=== PATIENT | female | born 1940 | race Caucasian/White ===

== ENCOUNTER → 2017-01-15 | Outpatient (CLI) | payer MEDICARE, OTHER ==
--- NOTE | 2017-01-15 17:24 | WOMENS IMAGING REPORT ---
EXAM DESCRIPTION: BILAT SCREENING MAMMO W/CAD COMPLETED DATE/TIME: 01/15/2017 3:12 pm REASON FOR STUDY: Z12.31, ROUTINE SCREENING MAMMO Z12.31 ENCNTR SCREEN MAMMOGRAM FOR MALIGNANT NEOP LASM OF ANGELA COMPARISON: 01/16/2016 and 01/10/2015. TECHNIQUE: Standard craniocaudal and mediolateral oblique views of each breast recorded using digita l acquisition. LIMITATIONS: None. FINDINGS: Findings present which are benign by mammographic criteria. No suspicious masses, calcifi cations or architectural distortion. Pertinent benign findings: Stable calcifications. Read with the assistance of CAD. .[facility] - R2 Cenova Version 1.3 .[facility] - R2 Cenova Version 1.3 .[facility] Imaging - R2 Cenova Version 2.4 .[facility] - R2 Cenova Version 2.4 .[facility] - R2 Senior Industrial Engineer Version 9.2 Benign mammographic findings may include one or more of the following: Smooth masses, popcorn/rim/co arse calcifications, asymmetries, post-procedure changes, and lesions with long-standing stability. IMPRESSION: BENIGN MAMMOGRAPHIC FINDINGS. BIRADS 2 BREAST DENSITY: b. There are scattered areas of fibroglandular density. BIRAD: 2 BENIGN FINDING(S) RECOMMENDATION: ROUTINE SCREENING COMMENT: The patient has been notified of the results by letter per MQSA requirements. Additional no tification policies are in place for contacting patient with suspicious or incomplete findings. Quality ID #[id number]: The [employer] recommends an annual screening mammogram for women aged 40 years or over. This facility utilizes a reminder system to ensure that all patients receive reminder letters, and/or direct phone calls for appointments. This includes reminders for routine scr eening mammograms, diagnostic mammograms, or other Breast Imaging Interventions when appropriate. Th is patient will be placed in the appropriate reminder system. The [employer] (ACR) has developed recommendations for screening MRI of the breast s in certain patient populations, to be used in conjunction with mammography. Breast MRI surveillanc e may be appropriate for women with more than 20% lifetime risk of developing breast cancer as deter mined by genetic testing, significant family history of the disease, or history of mantle radiation f or Hodgkins Disease. ACR Practice Guidelines 2008. TECHNICAL DOCUMENTATION: FINDING NUMBER: (1) ASSESSMENT: (1) JOB ID: [id number] [employer]- All Rights Reserved
== END ==
LOC: WI 13:33
PROVIDERS: ATTEND Internal Medicine
DX: Z12.31 Encounter for screening mammogram for malignant neoplasm of breast (principal)
CPT/HCPCS: 77067; G0202

== ENCOUNTER → 2017-02-21 | Outpatient (CLI) | payer MEDICARE, OTHER ==
--- NOTE | 2017-02-21 10:50 | RADIOLOGY REPORT (SQ) ---
EXAM DESCRIPTION: CHEST PA/LAT COMPLETED DATE/TIME: 02/21/2017 10:37 am REASON FOR STUDY: DYSPNEA (R06.00) COMPARISON: 01/10/2016 EXAM PARAMETERS: NUMBER OF VIEWS: two views TECHNIQUE: Digital Frontal and Lateral radiographic views of the chest acquired. RADIATION DOSE: NA LIMITATIONS: none FINDINGS: LUNGS AND PLEURA: No opacities, masses or pneumothorax. No pleural effusion. MEDIASTINUM AND HILAR STRUCTURES: No masses or contour abnormalities. HEART AND VASCULAR STRUCTURES: Heart normal size. No evidence for failure. BONES: No acute findings. HARDWARE: None in the chest. OTHER: No other significant finding. IMPRESSION: NO SIGNIFICANT RADIOGRAPHIC FINDING IN THE CHEST. TECHNICAL DOCUMENTATION: JOB ID: [id number] [employer]- All Rights Reserved
== END ==
LOC: RAD 10:19
PROVIDERS: ATTEND Internal Medicine Cardiovascular Disease
DX: R06.00 Dyspnea, unspecified (principal)
CPT/HCPCS: 71020

== ENCOUNTER 2017-06-07 14:36 | Emergency (ER) | payer MEDICARE, OTHER ==
--- NOTE | 2017-06-07 14:55 | ER Document Report ---
ED Medical Screen (RME) - General Chief Complaint: Fall Stated Complaint: FALL HEAD PAIN Time Seen by Provider: 06/07/17 14:49 Mode of Arrival: Wheelchair Information source: Patient TRAVEL OUTSIDE OF THE [place] IN LAST 30 DAYS: No - HPI Patient complains to provider of: Trip and fall Notes: 06/07/17 14:54 Patient is a 76-year-old female presenting to the emergency room today complaining of trip and fall with head injury and pain to left knee and ankle, states she was going down some stairs and missed the last day or entirely overstepping it causing her to fall and hit her head, there was no loss of consciousness, she reports pain to the left side of her face with pain in her left eye as well, patient takes Plavix - Related Data Allergies/Adverse Reactions: aspirin [Aspirin] Allergy (Severe, Verified 06/07/17 14:45) Vomiting Penicillins Allergy (Severe, Verified 06/07/17 14:45) Edema Past Medical History - Social History Chew tobacco use (# tins/day): No Frequency of alcohol use: None Drug Abuse: Bath salts - Past Medical History Cardiac Medical History: Reports: Hx Hypertension Denies: Hx Atrial Fibrillation, Hx Congestive Heart Failure, Hx Coronary Artery Disease, Hx Heart Attack, Hx Hypercholesterolemia, Hx Peripheral Vascular Disease, Hx Heart Murmur Endocrine Medical History: Reports: Hx Hypothyroidism - DISEASED THYROID REMOVED 1965 . Denies: Hx Graves' Disease Renal/ Medical History: Denies: Hx Ovarian Cysts, Hx Peritoneal Dialysis, Hx Pelvic Inflammatory Disease Malignancy Medical History: Denies: Hx Breast Cancer, Hx Cervical Cancer, Hx Leukemia, Hx Ovarian Cancer GI Medical History: Reports: Hx Gastroesophageal Reflux Disease. Denies: Hx Crohn's Disease, Hx Hiatal Hernia, Hx Irritable Bowel, Hx Liver Failure, Hx Pancreatitis, Hx Ulcer Musculoskeltal Medical History: Reports Hx Arthritis - osteo, Denies Hx Fibromyalgia, Denies Hx Muscular Dystrophy Traumatic Medical History: Denies: Hx Fractures Infectious Medical History: Denies: Hx HIV Past Surgical History: Reports: Hx Hysterectomy. Denies: Hx Appendectomy, Hx Bowel Surgery, Hx Section, Hx Cholecystectomy, Hx Colostomy, Hx Coronary Artery Bypass Graft, Hx Gastric Bypass Surgery, Hx Herniorrhaphy, Hx Mastectomy, Hx Pacemaker, Hx Tonsillectomy, Hx Tubal Ligation - Immunizations Hx Diphtheria, Pertussis, Tetanus Vaccination: Yes Physical Exam - Vital signs Vitals: Temp Pulse Resp BP Pulse Ox 98.8 F 123 H 18 154/104 H 96 06/07/17 14:45 06/07/17 14:45 06/07/17 14:45 06/07/17 14:45 06/07/17 14:45 Course - Vital Signs Vital signs: Temp Pulse Resp BP Pulse Ox 98.8 F 123 H 18 154/104 H 96 06/07/17 14:45 06/07/17 14:45 06/07/17 14:45 06/07/17 14:45 06/07/17 14:45
--- NOTE | 2017-06-07 15:15 | RADIOLOGY REPORT (SQ) ---
EXAM DESCRIPTION: CT HEAD WITHOUT COMPLETED DATE/TIME: 06/07/2017 3:02 pm REASON FOR STUDY: injury COMPARISON: CT brain 12/11/2012, 09/22/2015, 09/27/2015 TECHNIQUE: Axial images acquired through the brain without intravenous contrast. Images reviewed wi th bone, brain and subdural windows. Images stored on PACS. All CT scanners at this facility use dose modulation, iterative reconstruction, and/or weight based d osing when appropriate to reduce radiation dose to as low as reasonably achievable (ALARA). [facility]: Dose Right [facility]: CareDose [facility]: Dose Right [facility]: Teradose 4D [facility]: [employer] RADIATION DOSE: Up-to-date CT equipment and radiation dose reduction techniques were employed. CTDIv ol: 64.6 mGy. DLP: 1034 mGy-cm. mGy. LIMITATIONS: None. FINDINGS: VENTRICLES: Normal size and contour. CEREBRUM: No masses. No hemorrhage. No midline shift. No evidence for acute infarction. Normal gra y/white matter differentiation. No areas of low density in the white matter. CEREBELLUM: No masses. No hemorrhage. No alteration of density. No evidence for acute infarction. EXTRAAXIAL SPACES: No fluid collections. No masses. ORBITS AND GLOBE: No intra- or extraconal masses. Normal contour of globe without masses. CALVARIUM: No fracture. PARANASAL SINUSES: Fluid right sphenoid sinus SOFT TISSUES: No mass or hematoma. OTHER: No other significant finding. IMPRESSION: NORMAL BRAIN CT WITHOUT CONTRAST. EVIDENCE OF ACUTE STROKE: NO. COMMENT: Quality ID # [id number]: Final reports with documentation of one or more dose reduction techniques (e.g., Automated exposure control, adjustment of the mA and/or kV according to patient size, use of iterative reconstruction technique) TECHNICAL DOCUMENTATION: JOB ID: [id number] [employer]- All Rights Reserved
[2017-06-07] MEDS ORDERED: ACETAMINOPHEN 325 MG TABLET PO ONE (15:41)
--- NOTE | 2017-06-07 15:55 | ER Document Report ---
ED Fall - General Chief Complaint: Fall Stated Complaint: FALL HEAD PAIN Time Seen by Provider: 06/07/17 14:49 Mode of Arrival: Wheelchair Information source: Patient Notes: Patient is a very sweet 74-year-old female on Plavix who presents today after a fall around 10:30 AM. Patient states she was walking down the steps and fell off the last step forward onto her left side. She states she hit her head. She denies loss of consciousness. She states pain to the left side of her head , left knee, left ankle. She states she started to feel nauseous so came to the emergency department. She denies any weakness or numbness. She denies any chest pain or palpitations. She denies any back, upper extremity, or pelvis pain. TRAVEL OUTSIDE OF THE [place] IN LAST 30 DAYS: No - HPI Occurred: Other - See above Where: Home Context: Tripped Associated symptoms: None Location of injury/pain: Other - See above Quality of pain: No pain Severity: Mild Pain Level: 1 Prehospital interventions: Other - See above - Related data Allergies/Adverse Reactions: aspirin [Aspirin] Allergy (Severe, Verified 06/07/17 14:45) Vomiting Penicillins Allergy (Severe, Verified 06/07/17 14:45) Edema Home Medications: Current Home Medications Amitriptyline HCl 25 mg PO DAILY 06/07/17 [History] Butalb/Acetaminophen/Caffeine [Fioricet 50-300-40 mg Capsule] 1 cap PO Q4 PRN [History] Diclofenac Sodium 100 gm TP DAILY 06/07/17 [History] Fluticasone/Salmeterol [Advair 250-50 Diskus 14 Dose/Diskus] 1 inh IH Q12H 06/07 [History] Furosemide 20 mg PO DAILY 06/07/17 [History] Gabapentin 300 mg PO QHS 06/07/17 [History] Olmesartan/Amlodipin/Hcthiazid [Tribenzor 20-5-12.5 mg Tablet] 1 each PO DAILY 06/07/17 [History] Pur9772/Sod Sulf,Bicarb,Cl/KCl [Gavilyte-G Solution] 4,000 ml PO DAILY 06/07/17 [History] Past Medical History - General Information source: Patient - Social History Smoking Status: Never Smoker Cigarette use (# per day): No Chew tobacco use (# tins/day): No Smoking Education Provided: No Frequency of alcohol use: None Drug Abuse: Bath salts Family History: None - Past Medical History Cardiac Medical History: Reports: Hx Hypertension Denies: Hx Atrial Fibrillation, Hx Congestive Heart Failure, Hx Coronary Artery Disease, Hx Heart Attack, Hx Hypercholesterolemia, Hx Peripheral Vascular Disease, Hx Heart Murmur Endocrine Medical History: Reports: Hx Hypothyroidism - DISEASED THYROID REMOVED 1965 . Denies: Hx Graves' Disease Renal/ Medical History: Denies: Hx Ovarian Cysts, Hx Peritoneal Dialysis, Hx Pelvic Inflammatory Disease Malignancy Medical History: Denies: Hx Breast Cancer, Hx Cervical Cancer, Hx Leukemia, Hx Ovarian Cancer GI Medical History: Reports: Hx Gastroesophageal Reflux Disease. Denies: Hx Crohn's Disease, Hx Hiatal Hernia, Hx Irritable Bowel, Hx Liver Failure, Hx Pancreatitis, Hx Ulcer Musculoskeltal Medical History: Reports Hx Arthritis - osteo, Denies Hx Fibromyalgia, Denies Hx Muscular Dystrophy Traumatic Medical History: Denies: Hx Fractures Infectious Medical History: Denies: Hx HIV Past Surgical History: Reports: Hx Hysterectomy. Denies: Hx Appendectomy, Hx Bowel Surgery, Hx Section, Hx Cholecystectomy, Hx Colostomy, Hx Coronary Artery Bypass Graft, Hx Gastric Bypass Surgery, Hx Herniorrhaphy, Hx Mastectomy, Hx Pacemaker, Hx Tonsillectomy, Hx Tubal Ligation - Immunizations Hx Diphtheria, Pertussis, Tetanus Vaccination: Yes Review of Systems - Review of Systems Constitutional: denies: Fever EENT: denies: Eye discharge, Nose discharge Cardiovascular: denies: Chest pain, Palpitations, Syncope Respiratory: denies: Cough, Short of breath Gastrointestinal: denies: Abdominal pain, Diarrhea, Vomiting Genitourinary: denies: Dysuria Musculoskeletal: denies: Leg swelling Skin: Other - no hives. denies: Rash Neurological/Psychological: Other - no slurred speech -: Yes All other systems reviewed and negative Physical Exam - Vital signs Vitals: Temp Pulse Resp BP Pulse Ox 98.8 F 123 H 18 154/104 H 96 06/07/17 14:45 06/07/17 14:45 06/07/17 14:45 06/07/17 14:45 06/07/17 14:45 Notes: Reviewed vital signs and nursing note as charted by RN. CONSTITUTIONAL: Alert and oriented and responds appropriately to questions. Well -appearing; well-nourished HEAD: Normocephalic; atraumatic ENT: Normal nose; no rhinorrhea; moist mucous membranes; midface stable NECK: Supple without meningismus; non-tender CARD: Regular rate and rhythm; no murmurs RESP: Normal chest excursion without splinting or tachypnea; breath sounds clear and equal bilaterally; no tenderness to the anterior posterior chest ABD/GI: Normal bowel sounds; non-distended; soft, non-tender BACK: The back appears normal and is non-tender to palpation EXT: Normal ROM in all joints; tender to palpation of the left lateral malleolus and left knee. There is some swelling to the left lateral malleolus but no swelling to the left knee. Old left knee surgical scar present SKIN: No acute lesions noted NEURO: CN II through XII are intact. Moves all extremities equally; Motor and sensory function intact PSYCH: The patient's mood and manner are appropriate. Grooming and personal hygiene are appropriate. Course - Re-evaluation Re-evalutation: 06/07/17 15:54 Given the history and physical examination, we performed a CT scan of the head and x-ray of the left knee and left ankle. Patient has no focal neurological deficits. Patient denies any pain to any other location. I do not believe any imaging at this time is necessary. 06/07/17 16:14 CT scan of the head shows no acute abnormalities. X-ray of the left knee and left ankle shows no acute fractures. I had a long discussion with the patient about the possibility of a delayed bleed given that she is on Plavix. I have stated I will only be comfortable if the patient is able to go home into the care of another adult. Patient's daughter was going to pick her up. Patient states she also lives with her who is fully oriented. Given that the patient has some swelling to the left lateral malleolus despite a negative x-ray for fractures, I have offered the patient a walking boot and she has accepted. She does not feel that she will be able to handle crutches. I will provide orthopedic follow-up. - Vital Signs Vital signs: Temp Pulse Resp BP Pulse Ox 98.8 F 123 H 18 154/104 H 96 06/07/17 14:45 06/07/17 14:45 06/07/17 14:45 06/07/17 14:45 06/07/17 14:45 Discharge - Discharge Clinical Impression: Contusion of left knee, initial encounter Closed head injury Qualifiers: Encounter type: initial encounter Qualified Code(s): S09.90XA - Unspecified injury of head, initial encounter Left ankle sprain Qualifiers: Encounter type: initial encounter Involved ligament of ankle: other ligament Qualified Code(s): S93.492A - Sprain of other ligament of left ankle, initial encounter Condition: Good Disposition: HOME, SELF-CARE Instructions: Ice Packs ([facility]), Sprained Ankle ([facility]) Additional Instructions: Come back immediately for any increased headache, weakness or numbness, blurry vision, persistent vomiting, or any other acute problems. Please make sure that you ice and rest her ankle and please follow-up with orthopedics as we have provided. Referrals: LEILANI RUDOLPH MD [Primary Care Provider] - Follow up as needed HILTON HIGGINS MD [ACTIVE STAFF] - Follow up as needed
--- NOTE | 2017-06-07 16:25 | RADIOLOGY REPORT (SQ) ---
EXAM DESCRIPTION: ANKLE LEFT COMPLETE COMPLETED DATE/TIME: 06/07/2017 4:02 pm REASON FOR STUDY: fall COMPARISON: None. NUMBER OF VIEWS: Three views. TECHNIQUE: AP, lateral, and oblique radiographic images acquired of the left ankle. LIMITATIONS: None. FINDINGS: MINERALIZATION: Osteopenia BONES: No acute fracture or dislocation. No worrisome bone lesions. JOINTS: No effusions. SOFT TISSUES: Lateral soft tissue swelling. OTHER: No other significant finding. IMPRESSION: Soft tissue swelling overlies the lateral malleolus without underlying fracture. TECHNICAL DOCUMENTATION: JOB ID: [id number] [employer]- All Rights Reserved
--- NOTE | 2017-06-07 16:28 | RADIOLOGY REPORT (SQ) ---
EXAM DESCRIPTION: KNEE LEFT 4 VIEW COMPLETED DATE/TIME: 06/07/2017 4:02 pm REASON FOR STUDY: fall COMPARISON: None. NUMBER OF VIEWS: Four views. TECHNIQUE: AP, lateral, and both oblique radiographic images acquired of the left knee. LIMITATIONS: None. FINDINGS: MINERALIZATION: Osteopenia. BONES: Status post total knee arthroplasty without evidence of hardware fracture, perihardware lucenc y or migration. No evidence of acute osseous injury. JOINT: No effusion. SOFT TISSUES: No soft tissue swelling. No radio-opaque foreign body. OTHER: No other significant finding. IMPRESSION: Status post total knee arthroplasty without evidence of acute injury. TECHNICAL DOCUMENTATION: JOB ID: [id number] [employer]- All Rights Reserved
[2017-06-07 17:29] VITALS: BP 166/82
== END 2017-06-07 17:19 | disposition home or self-care (01) ==
LOC: ER 14:36
DX: S93.402A Sprain of unspecified ligament of left ankle, initial encounter (principal); S09.90XA Unspecified injury of head, initial encounter; W10.9XXA Fall (on) (from) unspecified stairs and steps, initial encounter; Y92.009 Unspecified place in unspecified non-institutional (private) residence as the place of occurrence of the external cause; M25.562 Pain in left knee; R51 Headache; M25.572 Pain in left ankle and joints of left foot; R11.0 Nausea; I10 Essential (primary) hypertension; Z96.652 Presence of left artificial knee joint; Z85.3 Personal history of malignant neoplasm of breast; Z85.41 Personal history of malignant neoplasm of cervix uteri; Z85.43 Personal history of malignant neoplasm of ovary; Z85.6 Personal history of leukemia; Z88.6 Allergy status to analgesic agent; Z88.0 Allergy status to penicillin
CPT/HCPCS: 99284; 73610; 73562; 70450; A9270

== ENCOUNTER → 2017-07-11 | Outpatient (CLI) | payer MEDICARE, OTHER ==
--- NOTE | 2017-07-11 12:22 | WOMENS IMAGING REPORT ---
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 TECHNIQUE: Dual-Energy X-ray Absorptiometry (DEXA) of the AP Spine and Hip. LIMITATIONS: None. FINDINGS: LUMBAR SPINE: The bone mineral density (BMD) measured from L1-L4 in the AP projection correlates with a T-score of -0.6, which is normal as defined by the World Health Organization. HIP: The bone mineral density (BMD) measured in the left femoral neck at the hip correlates with a T-score of -2.5, which is osteoporotic as defined by the World Health Organization. IMPRESSION: 1. LUMBAR SPINE: Normal 2. HIP: Osteoporotic COMMENT: The World Health Organization defines low BMD as follows: T-score: Normal: Greater than -1.0 Osteopenia: Between -1.0 and -2.5 Osteoporosis: Less than -2.5 without fractures Established osteoporosis: Less than -2.5 with fractures In general, you may wish to consider: Diagnosis Treatment Follow-up DEXA Normal BMD Prevention 2-3 years Osteopenia Prevention/Therapy 1-2 years Osteoporosis Therapy Yearly TECHNICAL DOCUMENTATION: JOB ID: [id number]- All Rights Reserved
== END ==
LOC: WI 09:09
PROVIDERS: ATTEND Orthopaedic Surgery
DX: M81.0 Age-related osteoporosis without current pathological fracture (principal)
CPT/HCPCS: 77080

== ENCOUNTER → 2017-07-24 | Outpatient (CLI) | payer MEDICARE, OTHER ==
[2017-07-24 13:37] LABS: ALANINE AMINOTRANSFERASE 24 U/L (9-52); ALBUMIN 4.3 g/dL (3.5-5.0); ALKALINE PHOSPHATASE 85 U/L (38-126); ANION GAP 12 (5-19); ASPARTATE AMINO TRANSFERASE 28 U/L (14-36); BILIRUBIN,DIRECT 0.5 mg/dL (0.0-0.4); BILIRUBIN,TOTAL 0.9 mg/dL (0.2-1.3); BLOOD UREA NITROGEN 12 mg/dL (7-20); CALCIUM 9.5 mg/dL (8.4-10.2); CARBON DIOXIDE 28 mmol/L (22-30); CHLORIDE 93 mmol/L (98-107); CREATININE RESULT 0.95 mg/dL (0.52-1.25); GLUCOSE 88 mg/dL (75-110); POTASSIUM 3.7 mmol/L (3.6-5.0); SODIUM 132.5 mmol/L (137-145); TOTAL PROTEIN 6.8 g/dL (6.3-8.2)
== END ==
LOC: OD 12:01
PROVIDERS: ATTEND Physician Assistant Surgical
DX: M81.0 Age-related osteoporosis without current pathological fracture (principal)
CPT/HCPCS: 36415; 80053; 82308; 83970; 85652

== ENCOUNTER → 2018-01-16 | Outpatient (CLI) | payer MEDICARE, OTHER ==
--- NOTE | 2018-01-21 15:25 | WOMENS IMAGING REPORT ---
EXAM DESCRIPTION: 3D SCREENING MAMMO BILAT COMPLETED DATE/TIME: 01/16/2018 12:33 pm REASON FOR STUDY: ROUTINE SCREENING;Z12.31 Z12.31 ENCNTR SCREEN MAMMOGRAM FOR MALIGNANT NEOPLASM OF ANGELA COMPARISON: [id number] TECHNIQUE: Standard craniocaudal and mediolateral oblique views of each breast recorded using digita l acquisition and breast tomosynthesis. LIMITATIONS: None. FINDINGS: No masses, calcifications or architectural distortion. No areas of suspicion. Read with the assistance of CAD. .[place] - R2 Cenova Version 1.3 .[facility] - R2 Cenova Version 1.3 .[facility] - R2 Cenova Version 2.4 .[facility] - R2 Cenova Version 2.4 .[facility] - R2 [employer] Version 9.2 IMPRESSION: NORMAL MAMMOGRAM. BIRADS 1. BREAST DENSITY: a. The breasts are almost entirely fatty. BIRAD: 1 NEGATIVE RECOMMENDATION: ROUTINE SCREENING COMMENT: The patient has been notified of the results by letter per [place] requirements. Additional no tification policies are in place for contacting patient with suspicious or incomplete findings. Quality ID #[id number]: The [employer] recommends an annual screening mammogram for women aged 40 years or over. This facility utilizes a reminder system to ensure that all patients receive reminder letters, and/or direct phone calls for appointments. This includes reminders for routine scr eening mammograms, diagnostic mammograms, or other Breast Imaging Interventions when appropriate. Th is patient will be placed in the appropriate reminder system. The [employer] (ACR) has developed recommendations for screening MRI of the breast s in certain patient populations, to be used in conjunction with mammography. Breast MRI surveillanc e may be appropriate for women with more than 20% lifetime risk of developing breast cancer as deter mined by genetic testing, significant family history of the disease, or history of mantle radiation f or Hodgkins Disease. ACR Practice Guidelines 2008. DBT Technology DBT is a type of tomographic mammography. With conventional mammography, overlapping breast tissue ma y make lesions difficult to detect, even with good compression. DBT uses an x-ray tube that rotates a round the breast, taking images at different angles. These images are then combined to create thin sl ices of the breast that the radiologist can view as a 3D reconstruction. The [employer] unit can perform full-field digital mammograms (2D imaging); or DBT (3D imaging); or both, in a combination mode that quickly performs both the mammogram and the tomosynthesis scan while the breast is still compressed. PQRS 6045F: Fluoroscopic imaging is not utilized for breast tomosynthesis. TECHNICAL DOCUMENTATION: FINDING NUMBER: (1) ASSESSMENT: (1) JOB ID: [id number] [email or web address]- All Rights Reserved Reading location - IP/workstation name: [email or web address]
== END ==
LOC: WI 08:37
PROVIDERS: ATTEND Internal Medicine
DX: Z12.31 Encounter for screening mammogram for malignant neoplasm of breast (principal)
CPT/HCPCS: 77063; 77067

== ENCOUNTER 2018-01-27 20:15 | Emergency (ER) | payer MEDICARE, OTHER ==
--- NOTE | 2018-01-27 20:48 | ER Document Report ---
ED General - General Information source: Patient TRAVEL OUTSIDE OF THE [place] IN LAST 30 DAYS: No <PARAM CORMIER - Last Filed: 01/27/18 22:01> <SAGE LOPEZ - Last Filed: 01/28/18 02:47> - General Stated Complaint: FALL/HEAD INJURY Time Seen by Provider: 01/27/18 20:21 Notes: 77 y.o female presents to the ED s/p fall and hit to the head while on Plavix. Pt reports that she fell and hit the RT side of her head recently and was already scheduled for a Head CT this coming , 01/29/18, but she fell again tonight and hit the LT side of the head. She denies any pain to her neck, shoulders, back or extremities. Pt reports that she has been stumbling a lot recently and that could have been the cause of her fall but denies this stumbling as being new to her. (PARAM CORMIER) - Related Data Allergies/Adverse Reactions: aspirin [Aspirin] Allergy (Severe, Verified 06/07/17 14:45) Vomiting Penicillins Allergy (Severe, Verified 06/07/17 14:45) Edema Past Medical History - General Information source: Patient - Social History Smoking Status: Unknown if Ever Smoked Family History: None - Past Medical History Cardiac Medical History: Reports: Hx Hypertension Endocrine Medical History: Reports: Hx Hypothyroidism - DISEASED THYROID REMOVED 1965 Renal/ Medical History: Denies: Hx Peritoneal Dialysis GI Medical History: Reports: Hx Gastroesophageal Reflux Disease Musculoskeltal Medical History: Reports Hx Arthritis - osteo Past Surgical History: Reports: Hx Hysterectomy - Immunizations Hx Diphtheria, Pertussis, Tetanus Vaccination: Yes <PARAM CORMIER - Last Filed: 01/27/18 22:01> Review of Systems - Review of Systems Constitutional: See HPI, Other - fall EENT: No symptoms reported Cardiovascular: No symptoms reported Respiratory: No symptoms reported Gastrointestinal: No symptoms reported Genitourinary: No symptoms reported Female Genitourinary: No symptoms reported Musculoskeletal: See HPI. denies: Back pain, Neck pain Skin: No symptoms reported Hematologic/Lymphatic: No symptoms reported Neurological/Psychological: See HPI, Other - hit to head while on blood thinners -: Yes All other systems reviewed and negative <PARAM CORMIER - Last Filed: 01/27/18 22:01> Physical Exam <PARAM CORMIER - Last Filed: 01/27/18 22:01> <SAGE LOPEZ - Last Filed: 01/28/18 02:47> - Vital signs Vitals: Temp Pulse Resp BP Pulse Ox 99.3 F 107 H 20 177/77 H 97 01/27/18 21:10 01/27/18 21:10 01/27/18 21:10 01/27/18 21:10 01/27/18 21:10 - Notes Notes: Physical Exam: General: Alert, appears well. HEENT: Normocephalic. Ecchymosis to her LT forehead and tender to palpation to RT parietal area. PERRL. Extraocular movements intact. Neck: Supple. Non-tender. Respiratory: No respiratory distress. Clear and equal breath sounds bilaterally. Cardiovascular: Regular rate and rhythm. Abdominal: Normal Inspection. Non-tender. No distension. Normal Bowel Sounds. Back: Non-tender. No deformity or step off. Extremities: Moves all four extremities. Upper extremities: Ecchymosis and abrasions in different stages of healing to her bilateral upper extremities. Normal ROM. Lower extremities: Normal inspection. No edema. Normal ROM. Neurological: Normal cognition. AAOx3. Normal speech. Psychological: Normal affect. Normal Mood. Skin: Warm. Dry. Abrasions of various stages of healing to her bilateral upper extremities. (PARAM CORMIER) Course <PARAM CORMIER - Last Filed: 01/27/18 22:01> - Diagnostic Test Radiology reviewed: Reports reviewed <SAGE LOPEZ - Last Filed: 01/28/18 02:47> - Re-evaluation Re-evalutation: Patient is a 77-year-old female who had a mechanical fall hitting the right side of her head this evening. Patient has a left side of her head earlier in the week. She is on Plavix. Patient has already seen her primary doctor this week and is scheduled to follow-up later in the week. She does not need blood work or urine for her. She is asking if she is ready to go home now. It is recommended that with her frequent falls she is assistive devices. Patient states that she does not like to use them but will work on it. She is to hold her Plavix tonight. Return if any worsening or concerning symptoms. Neurovascularly intact. Ambulates well. Stable for discharge. (SAGE LOPEZ) - Vital Signs Vital signs: Temp Pulse Resp BP Pulse Ox 99.3 F 95 18 150/82 H 96 01/27/18 21:56 01/27/18 21:56 01/27/18 21:56 01/27/18 21:56 01/27/18 21:56 Discharge <PARAM CORMIER - Last Filed: 01/27/18 22:01> <SAGE LOPEZ - Last Filed: 01/28/18 02:47> - Discharge Clinical Impression: Closed head injury Qualifiers: Encounter type: initial encounter Qualified Code(s): S09.90XA - Unspecified injury of head, initial encounter Condition: Stable Disposition: HOME, SELF-CARE Additional Instructions: Please hold your Plavix tonight. Please use your assistive devices to prevent falls. Referrals: JAYDON BASS PA-C [NO LOCAL MD] - Follow up tomorrow Scribe Attestation: 01/28/18 02:47 I personally performed the services described in the documentation, reviewed and edited the documentation which was dictated to the scribe in my presence, and it accurately records my words and actions. (SAGE LOPEZ) Scribe Documentation - Scribe Written by Chepe:: Chepe Cardona 01/27/[id number] acting as scribe for :: Bob <PARAM CORMIER - Last Filed: 01/27/18 22:01>
--- NOTE | 2018-01-27 20:53 | RADIOLOGY REPORT (SQ) ---
EXAM DESCRIPTION: CT HEAD WITHOUT COMPLETED DATE/TIME: 01/27/2018 8:45 pm REASON FOR STUDY: on plavix fall COMPARISON: 06/07/2017 TECHNIQUE: Axial images acquired through the brain without intravenous contrast. Images reviewed wi th bone, brain and subdural windows. Images stored on PACS. All CT scanners at this facility use dose modulation, iterative reconstruction, and/or weight based d osing when appropriate to reduce radiation dose to as low as reasonably achievable (ALARA). [facility]: Dose Right [facility]: CareDose [facility]: Dose Right [facility]: Teradose 4D [facility]: Smart [employer] RADIATION DOSE: CT Rad equipment meets quality standard of care and radiation dose reduction techniq ues were employed. CTDIvol: 53.2 mGy. DLP: 1017 mGy-cm. mGy. LIMITATIONS: None. FINDINGS: VENTRICLES: Normal size and contour. CEREBRUM: No masses. No hemorrhage. No midline shift. No evidence for acute infarction. Normal gra y/white matter differentiation. No areas of low density in the white matter. CEREBELLUM: No masses. No hemorrhage. No alteration of density. No evidence for acute infarction. EXTRAAXIAL SPACES: No fluid collections. No masses. ORBITS AND GLOBE: No intra- or extraconal masses. Normal contour of globe without masses. CALVARIUM: No fracture. PARANASAL SINUSES: Mild mucosal thickening without air-fluid levels. SOFT TISSUES: Right posterior parietal scalp hematoma. OTHER: No other significant finding. IMPRESSION: SCALP HEMATOMA WITHOUT FRACTURE OR ACUTE INTRACRANIAL PROCESS. EVIDENCE OF ACUTE STROKE: NO. COMMENT: Quality ID # [id number]: Final reports with documentation of one or more dose reduction techniques (e.g., Automated exposure control, adjustment of the mA and/or kV according to patient size, use of iterative reconstruction technique) TECHNICAL DOCUMENTATION: JOB ID: [id number] [employer]- All Rights Reserved Reading location - IP/workstation name: [email or web address]
--- NOTE | 2018-01-27 20:54 | RADIOLOGY REPORT (SQ) ---
EXAM DESCRIPTION: CT CERVICAL SPINE WITHOUT COMPLETED DATE/TIME: 01/27/2018 8:45 pm REASON FOR STUDY: on plavix fall COMPARISON: 09/27/2015 TECHNIQUE: Axial images acquired through the cervical spine without intravenous contrast. Images re viewed with lung, soft tissue and bone windows. Reconstructed coronal and sagittal MPR images review ed. Images stored on PACS. All CT scanners at this facility use dose modulation, iterative reconstruction, and/or weight based d osing when appropriate to reduce radiation dose to as low as reasonably achievable (ALARA). [facility]: Dose Right [facility]: CareDose [facility]: Dose Right [facility]: Teradose 4D [facility]: Smart [employer] RADIATION DOSE: CT Rad equipment meets quality standard of care and radiation dose reduction techniq ues were employed. CTDIvol: 27.5 mGy. DLP: 572 mGy-cm. mGy. LIMITATIONS: None. FINDINGS: ALIGNMENT: Anatomic. MINERALIZATION: Normal. VERTEBRAL BODIES: No fractures or dislocation. DISCS: Multilevel disc space narrowing with osteophytes. FACETS, LATERAL MASSES, POSTERIOR ELEMENTS: Facet arthropathy. No fractures. No dislocation. No ac keith findings. HARDWARE: None in the spine. VISUALIZED RIBS: No fractures. LUNG APICES AND SOFT TISSUES: No significant or acute findings. OTHER: No other significant finding. IMPRESSION: CHRONIC DEGENERATIVE CHANGES. NO ACUTE FINDINGS. TECHNICAL DOCUMENTATION: JOB ID: [id number] Quality ID # [id number]: Final reports with documentation of one or more dose reduction techniques (e.g., Au tomated exposure control, adjustment of the mA and/or kV according to patient size, use of iterative reconstruction technique) 2010 [employer]- All Rights Reserved Reading location - IP/workstation name: [email or web address]
[2018-01-27] MEDS ORDERED: ONDANSETRON 4 MG TAB.RAPDIS PO ONE (21:51)
[2018-01-27] MEDS ORDERED: ACETAMINOPHEN 325 MG TABLET PO ONE (21:51)
[2018-01-27] MEDS ORDERED: LIDOCAINE 5% (700 MG) TRANSDERMAL ADH..PATCH TP ONE (21:51)
[2018-01-27 21:58] VITALS: BP 150/82
[2018-01-27] MEDS ORDERED: ONDANSETRON ODT 4 MG TAB (6 TAB/ER DISP) PO PRN (22:09)
== END 2018-01-27 22:20 | disposition home or self-care (01) ==
LOC: ER 20:15
DX: S00.83XA Contusion of other part of head, initial encounter (principal); S40.022A Contusion of left upper arm, initial encounter; S40.021A Contusion of right upper arm, initial encounter; W19.XXXA Unspecified fall, initial encounter; R26.89 Other abnormalities of gait and mobility; Z79.02 Long term (current) use of antithrombotics/antiplatelets; Z88.6 Allergy status to analgesic agent; Z88.0 Allergy status to penicillin; I10 Essential (primary) hypertension
CPT/HCPCS: 99284; 70450; 72125; A9270 ×2; S0119

== ENCOUNTER 2019-01-14 06:49 | Emergency (ER) | payer MEDICARE, OTHER ==
--- NOTE | 2019-01-14 08:43 | EKG REPORT ---
SEVERITY:- NORMAL ECG - SINUS RHYTHM : Confirmed by: Bertha Rausch 14-Jan-2019 08:41:05
--- NOTE | 2019-01-14 09:01 | RADIOLOGY REPORT (SQ) ---
EXAM DESCRIPTION: CT HEAD WITHOUT COMPLETED DATE/TIME: 01/14/2019 8:43 am REASON FOR STUDY: edward COMPARISON: None. TECHNIQUE: Axial images acquired through the brain without intravenous contrast. Images reviewed wi th bone, brain and subdural windows. Additional sagittal and coronal reconstructions were generated. Images stored on PACS. All CT scanners at this facility use dose modulation, iterative reconstruction, and/or weight based d osing when appropriate to reduce radiation dose to as low as reasonably achievable (ALARA). [facility]: Dose Right [facility]: CareDose [facility]: Dose Right [facility]: Teradose 4D [facility]: [place] RADIATION DOSE: CT Rad equipment meets quality standard of care and radiation dose reduction techniq ues were employed. CTDIvol: 53.2 mGy. DLP: 964 mGy-cm.mGy. LIMITATIONS: None. FINDINGS: VENTRICLES: Prominent. CEREBRUM: No masses. No hemorrhage. No midline shift. Areas of low density in the white matter mos t likely due to chronic micro-vascular ischemic change. No evidence for acute infarction. CEREBELLUM: No masses. No hemorrhage. No alteration of density. No evidence for acute infarction. EXTRAAXIAL SPACES: Age-related involutional change. No fluid collections. No masses. ORBITS AND GLOBE: No intra- or extraconal masses. Normal contour of globe without masses. CALVARIUM: No fracture. PARANASAL SINUSES: Opacified right sphenoid sinus. SOFT TISSUES: No mass or hematoma. OTHER: No other significant finding. IMPRESSION: CHRONIC CHANGES OF ATROPHY AND MICROVASCULAR ISCHEMIA. NO ACUTE PROCESS. EVIDENCE OF ACUTE STROKE: NO. TECHNICAL DOCUMENTATION: JOB ID: [id number] Quality ID # [id number]: Final reports with documentation of one or more dose reduction techniques (e.g., Au tomated exposure control, adjustment of the mA and/or kV according to patient size, use of iterative reconstruction technique) 2010 [employer]- All Rights Reserved Reading location - IP/workstation name: [email or web address]
[2019-01-14] MEDS ORDERED: DIPHENHYDRAMINE HCL 25 MG CAPSULE PO ONE (09:12)
--- NOTE | 2019-01-14 09:19 | ER Document Report ---
ED General - General Chief Complaint: Headache Stated Complaint: HEADACHE Time Seen by Provider: 01/14/19 07:54 Primary Care Provider: LEILANI RUDOLPH MD [Primary Care Provider] - Follow up in 1 week Mode of Arrival: Ambulatory Information source: Patient Notes: Patient presents emergency department with complaints of headache that comes and goes for the past 3 days. Reports patient reports headache is gone right now. She feels like it is coming back. She reports she is been taking 3 Tylenol every 3-4 hours for the pain. Reports the headache will make her feel little bit nauseated and dizzy. She reports she was recently treated with laser eye surgery on Friday then last they took 6 teeth out. She was also diagnosed with an ear infection on Friday by her primary care provider. She was treated with eardrops for the ear infection. She had headaches at that time to but they thought was due to the earaches. She also called her primary care provider back regarding headaches and he prescribed her a Z-Kraig yesterday. She reports she took 2 of the Zithromax and felt better yesterday. Her daughter also brought her some medication for sinus infection , nasal sprays. She denies trauma. Denies vomiting diarrhea. She reports the headaches come and go feels like pressure all over her head. TRAVEL OUTSIDE OF THE [place] IN LAST 30 DAYS: No - HPI Onset: Other Onset/Duration: Waxing and waning Quality of pain: Pressure Severity: Severe Pain Level: 5 - Reports headache is a 5 when it comes. She took last Tylenol at approximately 6:00. Associated symptoms: Headache, Nausea Exacerbated by: Denies Relieved by: Denies Similar symptoms previously: Yes Recently seen / treated by doctor: Yes - Related Data Allergies/Adverse Reactions: aspirin [Aspirin] Allergy (Severe, Verified 01/14/19 07:32) Vomiting Penicillins Allergy (Severe, Verified 01/14/19 07:32) Edema Past Medical History - General Information source: Patient - Social History Smoking Status: Unknown if Ever Smoked Cigarette use (# per day): No Frequency of alcohol use: None Drug Abuse: None Family History: None Patient has suicidal ideation: No Patient has homicidal ideation: No - Past Medical History Cardiac Medical History: Reports: Hx Hypertension Denies: Hx Atrial Fibrillation, Hx Congestive Heart Failure, Hx Coronary Artery Disease, Hx Heart Attack, Hx Hypercholesterolemia, Hx Peripheral Vascular Disease, Hx Heart Murmur Endocrine Medical History: Reports: Hx Hypothyroidism - DISEASED THYROID REMOVED 1965 . Denies: Hx Graves' Disease Renal/ Medical History: Denies: Hx Ovarian Cysts, Hx Peritoneal Dialysis, Hx Pelvic Inflammatory Disease Malignancy Medical History: Denies: Hx Breast Cancer, Hx Cervical Cancer, Hx Leukemia, Hx Ovarian Cancer GI Medical History: Reports: Hx Gastroesophageal Reflux Disease. Denies: Hx Crohn's Disease, Hx Hiatal Hernia, Hx Irritable Bowel, Hx Liver Failure, Hx Pancreatitis, Hx Ulcer Musculoskeletal Medical History: Reports Hx Arthritis - osteo, Denies Hx Fibromy algia, Denies Hx Muscular Dystrophy, Denies Hx Systemic Lupus Erythematosus Traumatic Medical History: Denies: Hx Fractures Infectious Medical History: Denies: Hx HIV Past Surgical History: Reports: Hx Hysterectomy, Hx Orthopedic Surgery - bilat knee replacement, r shoulder recplacement. Denies: Hx Appendectomy, Hx Bowel S urgery, Hx Section, Hx Cholecystectomy, Hx Colostomy, Hx Coronary Artery Bypass Graft, Hx Gastric Bypass Surgery, Hx Herniorrhaphy, Hx Mastectomy, Hx Pacemaker, Hx Tonsillectomy, Hx Tubal Ligation - Immunizations Hx Diphtheria, Pertussis, Tetanus Vaccination: Yes Review of Systems - Review of Systems Notes: Review HPI for review of systems., All other systems negative Physical Exam - Vital signs Vitals: Temp Pulse Resp BP Pulse Ox 98.3 F 102 H 18 125/58 L 100 01/14/19 07:09 01/14/19 07:09 01/14/19 07:09 01/14/19 07:09 01/14/19 07:09 - Notes Notes: PHYSICAL EXAMINATION: GENERAL: Well-appearing and in no acute distress HEAD: Atraumatic, normocephalic. EYES: Pupils equal round and reactive to light, extraocular movements intact, sclera anicteric, conjunctiva are normal. ENT: nares patent, oropharynx clear without exudates. Moist mucous membranes. right EAC eyrthema NECK: Normal range of motion, supple without lymphadenopathy LUNGS: CTAB and equal. No wheezes rales or rhonchi. HEART: Regular rate and rhythm without murmurs ABDOMEN: Soft, no tenderness. No guarding, no rebound EXTREMITIES: Normal range of motion, no pitting edema. No cyanosis. NEUROLOGICAL: Cranial nerves grossly intact. Normal sensory/motor exams. PSYCH: Normal mood, normal affect. 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 Patient reports the headache is coming back so we will treat her with Benadryl and she recently took Tylenol. Patient reports ibuprofen makes her nauseated sick to her stomach.. 01/14/19 09:59 Patient reports her headache is now worse. Will attempt Zofran and Reglan. 01/14/19 10:43 Patient reports her headache is better. She has an appoint with Dr. Rausch tomorrow. She will follow-up with Dr. Rudolph next week. She was instructed to return for any concerns she verbalized understanding. 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 Patient is neurologically intact. Her CT was negative. She feels better. The patient has been instructed to return if the symptoms worsen or change in anyway. Dictation of this chart was performed using voice recognition software; therefore, there may be some unintended grammatical errors. - Vital Signs Vital signs: Temp Pulse Resp BP Pulse Ox 98.4 F 70 16 123/61 95 01/14/19 09:59 01/14/19 09:59 01/14/19 09:59 01/14/19 09:59 01/14/19 09:59 - Diagnostic Test Radiology reviewed: Image reviewed, Reports reviewed - EXAM DESCRIPTION: CT HEAD WITHOUT COMPLETED DATE/TIME: 01/14/2019 8:43 am REASON FOR STUDY: edward COMPARISON: None. TECHNIQUE: Axial images acquired through the brain without intravenous contrast. Images reviewed with bone, brain and subdural windows. Additional sagittal and coronal reconstructions were generated. Images stored on PACS. All CT scanners at this facility use dose modulation, iterative reconstruction, and/or weight based dosing when appropriate to reduce radiation dose to as low as reasonably achievable (ALARA). [facility]: Dose Right [facility]: CareDose [facility]: Dose Right [facility]: Teradose 4D [facility]: [employer] RADIATION DOSE: CT Rad equipment meets quality standard of care and radiation dose reduction techniques were employed. CTDIvol: 53.2 mGy. DLP: 964 mGy-cm.mGy. LIMITATIONS: None. FINDINGS: VENTRICLES: Prominent. CEREBRUM: No masses. No hemorrhage. No midline shift. Areas of low density in the white matter most likely due to chronic micro-vascular ischemic change. No evidence for acute infarction. CEREBELLUM: No masses. No hemorrhage. No alteration of density. No evidence for acute infarction. EXTRAAXIAL SPACES: Age-related involutional change. No fluid collections. No masses. ORBITS AND GLOBE: No intra- or extraconal masses. Normal contour of globe without masses. CALVARIUM: No fracture. PARANASAL SINUSES: Opacified right sphenoid sinus. SOFT TISSUES: No mass or hematoma. OTHER: No other significant finding. IMPRESSION: CHRONIC CHANGES OF ATROPHY AND MICROVASCULAR ISCHEMIA. NO ACUTE PROCESS. EVIDENCE OF ACUTE STROKE: NO. - EKG Interpretation by Sd EKG shows normal: Sinus rhythm Rate: Normal Rhythm: NSR Additional EKG results interpreted by de: 01/14/19 09:[address] elevation or T wave inversion Discharge - Discharge Clinical Impression: Headache Qualifiers: Headache type: unspecified Headache chronicity pattern: unspecified pattern Intractability: not intractable Qualified Code(s): R51 - Headache Condition: Stable Disposition: HOME, SELF-CARE Instructions: Acetaminophen, Use of Diphenhydramine, Headache ([facility]) Additional Instructions: *You have been evaluated for headache *Take tylenol as indicated *Follow up with Dr Holt within one week for recheck *Return to ED for worsening condition, changes, needs Referrals: LEILANI RUDOLPH MD [Primary Care Provider] - Follow up in 1 week
[2019-01-14] MEDS ORDERED: METOCLOPRAMIDE HCL 10 MG TABLET PO ONE (09:59)
[2019-01-14] MEDS ORDERED: ONDANSETRON 4 MG TAB.RAPDIS PO ONE (09:59)
[2019-01-14 10:14] VITALS: BP 123/61
== END 2019-01-14 10:53 | disposition home or self-care (01) ==
LOC: ER 06:49
DX: I10 Essential (primary) hypertension (principal); R51 Headache; R11.0 Nausea; R42 Dizziness and giddiness
CPT/HCPCS: 93005; 99284; 70450; 93010; A9270 ×3; S0119

== ENCOUNTER → 2019-01-25 | Outpatient (CLI) | payer MEDICARE, OTHER ==
--- NOTE | 2019-01-25 11:04 | WOMENS IMAGING REPORT ---
EXAM DESCRIPTION: 3D SCREENING MAMMO BILAT COMPLETED DATE/TIME: 01/25/2019 8:57 am REASON FOR STUDY: Z12.31 ROUTINE 3D BILATERAL SCREENING Z12.31 ENCNTR SCREEN MAMMOGRAM FOR MALIGNAN T NEOPLASM OF ANGELA COMPARISON: [id number] EXAM PARAMETERS: Views: Standard craniocaudal and mediolateral oblique views of each breast recorded using digital acquisition and breast tomosynthesis. Read with the assistance of CAD. .[facility] - [employer] Version 9.2 LIMITATIONS: None. FINDINGS: No suspicious masses, suspicious calcifications or architectural distortion. No areas of c oncern. IMPRESSION: Assessment: Negative MAMMOGRAM. BIRADS 1. BREAST DENSITY: b. There are scattered areas of fibroglandular density. BIRAD: 1 NEGATIVE RECOMMENDATION: ROUTINE SCREENING COMMENT: The patient has been notified of the results by letter per MQSA requirements. Additional no tification policies are in place for contacting patient with suspicious or incomplete findings. Quality ID #[id number]: The [employer] recommends an annual screening mammogram for women aged 40 years or over. This facility utilizes a reminder system to ensure that all patients receive reminder letters, and/or direct phone calls for appointments. This includes reminders for routine scr eening mammograms, diagnostic mammograms, or other Breast Imaging Interventions when appropriate. Th is patient will be placed in the appropriate reminder system. TECHNICAL DOCUMENTATION: FINDING NUMBER: (1) ASSESSMENT: (1) JOB ID: [id number] [employer]- All Rights Reserved Reading location - IP/workstation name: [email or web address]
== END ==
LOC: WI 08:31
PROVIDERS: ATTEND Internal Medicine
DX: Z12.31 Encounter for screening mammogram for malignant neoplasm of breast (principal)
CPT/HCPCS: 77063; 77067

== ENCOUNTER → 2019-02-03 | Outpatient (CLI) | payer MEDICARE, OTHER ==
[2019-02-03 09:42] LABS: APPEARANCE,URINE SLIGHTLY-CLOUDY; BILIRUBIN,URINE NEGATIVE (NEGATIVE); COLOR,URINE YELLOW; GLUCOSE, URINE NEGATIVE (NEGATIVE); KETONES,URINE NEGATIVE (NEGATIVE); LEUKOCYTE ESTERASE,URINE LARGE (NEGATIVE); NITRITE,URINE NEGATIVE (NEGATIVE); PROTEIN,URINE NEGATIVE (NEGATIVE); URINE SPECIFIC GRAVITY 1.011; UROBILINOGEN,URINE NEGATIVE mg/dL (<2.0)
[2019-02-03 09:49] LABS: ABSOLUTE BASOPHILS # (AUTO) 0.1 10^3/uL (0.0-0.2); ABSOLUTE EOSINOPHILS # (AUTO) 0.2 10^3/uL (0.0-0.6); ABSOLUTE LYMPHOCYTES (AUTO) 1.7 10^3/uL (0.5-4.7); ABSOLUTE MONOCYTES (AUTO) 0.4 10^3/uL (0.1-1.4); ABSOLUTE NEUT (AUTO) 2.5 10^3/uL (1.7-8.2); BASOPHILS % (AUTO) 1.3 % (0-2); EOSINOPHILS % (AUTO) 4.7 % (0-6); HEMOGLOBIN 11.9 g/dL (12.0-15.5); LYMPHOCYTES % (AUTO) 33.8 % (13-45); MEAN CORPUSCULAR HEMOGLOBIN 32.3 pg (27.0-33.4); MEAN CORPUSCULAR VOLUME 95 fl (80-97); MONOCYTES % (AUTO) 8.4 % (3-13); PLATELET COUNT 323 10^3/uL (150-450); RED BLOOD COUNT 3.68 10^6/uL (3.72-5.28); RED CELL DISTRIBUTION WIDTH 14.7 % (11.5-14.0); SEGMENTED NEUTROPHILS % (AUTO) 51.8 % (42-78); TOTAL CELLS COUNTED % (AUTO) 100 %; WHITE BLOOD COUNT 4.9 10^3/uL (4.0-10.5)
[2019-02-03 09:56] LABS: ANION GAP 10 (5-19); BLOOD UREA NITROGEN 15 mg/dL (7-20); CALCIUM 9.8 mg/dL (8.4-10.2); CARBON DIOXIDE 26 mmol/L (22-30); CHLORIDE 97 mmol/L (98-107); GLUCOSE 103 mg/dL (75-110); POTASSIUM 4.4 mmol/L (3.6-5.0); SODIUM 133.3 mmol/L (137-145)
--- NOTE | 2019-02-03 11:30 | RADIOLOGY REPORT (SQ) ---
EXAM DESCRIPTION: CHEST PA/LATERAL COMPLETED DATE/TIME: 02/03/2019 9:24 am REASON FOR STUDY: PRE-OP COMPARISON: 1,017 TECHNIQUE: Frontal and lateral radiographic views of the chest acquired. NUMBER OF VIEWS: Two view. LIMITATIONS: None. FINDINGS: LUNGS AND PLEURA: Mild eventration right hemidiaphragm with basilar scar and evidence of p revious granulomatous disease. Chronic change. Stable appearance. No developing opacities. MEDIASTINUM AND HILAR STRUCTURES: No masses or contour abnormalities. HEART AND VASCULAR STRUCTURES: Heart normal size. No evidence for failure. BONES: No acute findings. HARDWARE: None in the chest. OTHER: No other significant finding. IMPRESSION: Stable chest without acute cardiopulmonary disease. TECHNICAL DOCUMENTATION: JOB ID: [id number] [employer]- All Rights Reserved Reading location - IP/workstation name: [email or web address]
--- NOTE | 2019-02-03 15:50 | EKG REPORT ---
SEVERITY:- NORMAL ECG - SINUS RHYTHM : Confirmed by: Connor Cochran MD 03-Feb-2019 15:49:34
== END ==
LOC: OD 08:32
PROVIDERS: ATTEND Orthopaedic Surgery
DX: Z01.810 Encounter for preprocedural cardiovascular examination (principal); Z01.811 Encounter for preprocedural respiratory examination; Z01.812 Encounter for preprocedural laboratory examination
CPT/HCPCS: 36415; 71046; 80048; 81001; 85025; 93005; 93010

== ENCOUNTER 2019-03-01 05:24 | Inpatient (IN) | payer MEDICARE, OTHER ==
[~2019-03-01 05:24] MED LIST: BUPIVACAINE INJ/PF LIPOSOME/PF 266 MG/20 ML SDV INJ PRN; CEFAZOLIN INJ 1 GM VIAL IV PRN; CEFAZOLIN INJ 1 GM VIAL ONE; IBUPROFEN 800 MG in NORMAL SALINE 250 ML IV PRN; LACTATED RINGERS 1000 ML IV PRN; LIDOCAINE 0.5% INJ-PF (5 MG/ML) 50 ML SDV SUBCUT PRN; OXYCODONE HCL SR 10 MG TABLET PO ONE; OXYCODONE HCL SR 10 MG TABLET PO PRN; PANTOPRAZOLE SODIUM 20 MG TABLET.DR PO ONE; PANTOPRAZOLE SODIUM 20 MG TABLET.DR PO PRN; VANCOMYCIN HCL 1,000 MG in DEXTROSE 5%-WATER 250 ML IV PRN
[2019-03-01] MEDS ORDERED: FENTANYL CITRATE INJ/PF 250 MCG/5 ML AMPULE ONE (06:25)
[2019-03-01] MEDS ORDERED: FENTANYL CITRATE INJ/PF 100 MCG/2 ML AMPUL ONE (06:26)
[2019-03-01] MEDS ORDERED: PROPOFOL INJ 200 MG/20 ML VIAL IV ONE (06:26)
[2019-03-01] MEDS ORDERED: ONDANSETRON HCL INJ/PF 4 MG/2 ML SDV ONE (06:26)
[2019-03-01] MEDS ORDERED: EPHEDRINE SULFATE INJ 50 MG/1 ML AMPULE ONE (06:26)
[2019-03-01] MEDS ORDERED: MIDAZOLAM 2 MG/2 ML INJ ONE (06:26)
[2019-03-01] MEDS ORDERED: DEXAMETHASONE SOD PHOSPHATE INJ 4 MG/1 ML VIAL ONE (06:26)
[2019-03-01] MEDS ORDERED: TRANEXAMIC ACID INJ/PF 1,000 MG/10 ML SDV IV ONE (06:27)
[2019-03-01] MEDS ORDERED: LIDOCAINE 0.5% INJ-PF (5 MG/ML) 50 ML SDV ONE (06:28)
[2019-03-01 06:43] LABS: INTERNATIONAL RATION (INR) 0.93; PROTHROMBIN TIME 12.5 SEC (11.4-15.4)
[2019-03-01] MEDS ORDERED: BUPIVACAINE HCL 0.25% /EPINEPHRINE INJ/PF 30 ML SDV ONE (07:10)
[2019-03-01] MEDS ORDERED: FENTANYL CITRATE INJ/PF 100 MCG/2 ML AMPUL IV PRN ×3 (08:05)
[2019-03-01] MEDS ORDERED: MEPERIDINE HCL/PF INJ 25 MG/1 ML DISP.SYRIN IV PRN (08:05)
[2019-03-01] MEDS ORDERED: MORPHINE SULFATE 10 MG/ML INJ IV PRN (08:05)
[2019-03-01] MEDS ORDERED: ONDANSETRON HCL INJ/PF 4 MG/2 ML SDV IV PRN (08:05)
[2019-03-01] MEDS ORDERED: DIPHENHYDRAMINE HCL 50 MG/ML VIAL IV PRN (08:05)
[2019-03-01] MEDS ORDERED: PROMETHAZINE HCL INJ 25 MG/1 ML VIAL IV PRN ×2 (08:05)
[2019-03-01] MEDS ORDERED: VANCOMYCIN HCL INJ 1000 MG VIAL ONE (09:01)
--- NOTE | 2019-03-01 09:31 | Discharge Summary ---
Discharge Summary (SDC) - Discharge Final Diagnosis: Left rotator cuff arthropathy Date of Surgery: 03/01/19 Discharge Date: 03/02/19 Condition: Good Prescriptions: Oxycodone HCl/Acetaminophen [Percocet 5-325 mg Tablet] 1 tab PO Q6 #40 tab Referrals: LEILANI RUDOLPH MD [Primary Care Provider] -
--- NOTE | 2019-03-01 09:39 | Operative Report ---
Operative Report DATE OF SURGERY: 03/01/19 PREOPERATIVE DIAGNOSIS: Left rotator cuff arthropathy OPERATION: Left reverse shoulder arthroplasty SURGEON: HILTON HIGGINS ANESTHESIA: GA TISSUE REMOVED OR ALTERED: Bone to pathology COMPLICATIONS: Left humerus fracture ESTIMATED BLOOD LOSS: 100 PROCEDURE: Cooper reunion reverse shoulder 12 x 200 cemented humeral stem With the patient in a beachchair position the left upper extremity and forequarter prepped and draped in a sterile fashion. A standard deltopectoral approach to the shoulder joint is taken. A lesser tuberosity osteotomy was performed and tagged for repair of the subscapularis at the end of the case. Access was gained to the humerus. This is removed cylindrical reamers until a 13 mm reamer is seated. A trial reduction of the implant is performed. The glenoid is exposed. The capsule was released circumferentially and the labrum debrided. The the baseplate is then secured with 5 screws and the glenosphere impacted. A trial reduction was then performed and the fit and stability are excellent. In the process of dislocating the humeral head there is an acute snap audible and an underlying humeral fracture. The existing stem was removed. A 200 mm stem was placed down the canal and the comminuted fracture is re-approximated using interrupted cables x 3. The 200 stem is then slightly removed by about 3 inches and cement with polymethylmethacrylate containing vancomycin placed down the proximal aspect of the humerus. The stem was then replaced. The final humeral head is impacted into the trunnion. The shoulder is reduced. Is irrigated with 3 L normal saline containing Betadine The lesser tuberosity osteotomy and the rotator cuff were repaired using interrupted FiberWire. The remainder of the wound closure was interrupted Vicryl followed by preston. A sterile dressing and a shoulder abduction pillow were placed. The patient's return to the PACU in satisfactory condition. Initially transferred to the
[2019-03-01] MEDS ORDERED: RINGERS SOLUTION,LACTATED 1,000 ML IV PRN (10:04)
[2019-03-01] MEDS: FENTANYL CITRATE INJ/PF 100 MCG/2 ML AMPUL ONE ×2 (10:15→10:20)
[2019-03-01] MEDS ORDERED: ACETAMINOPHEN 1,000 MG/100 ML RTUPB IV ONE (10:29)
[2019-03-01] MEDS: MORPHINE SULFATE 10 MG/ML INJ ONE ×4 (10:35→10:50)
--- NOTE | 2019-03-01 11:32 | RADIOLOGY REPORT (SQ) ---
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 FLUOROSCOPY TIME: 0.4 minutes 15 digital fluoroscopic images saved to PACS. TECHNIQUE: Intra-operative images acquired during surgical procedure to evaluate progress. NUMBER OF IMAGES: 15 digital fluoroscopic images LIMITATIONS: None. FINDINGS: Intra procedural imaging and fluoro. Please see the operative report IMPRESSION: IMAGE(S) OBTAINED DURING PROCEDURE. COMMENT: Quality ID 145: Final reports for procedures using fluoroscopy that document radiation exp osure indices, or exposure time and number of fluorographic images (if radiation exposure indices are not available) Please consult full operative report of the attending physician for description of the procedure. TECHNICAL DOCUMENTATION: JOB ID: [id number] [facility]- All Rights Reserved Reading location - IP/workstation name: [email or web address]
--- NOTE | 2019-03-01 11:32 | RADIOLOGY REPORT (SQ) ---
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 FLUOROSCOPY TIME: 0.4 minutes 15 digital fluoroscopic images saved to PACS. TECHNIQUE: Intra-operative images acquired during surgical procedure to evaluate progress. NUMBER OF IMAGES: 15 digital fluoroscopic images LIMITATIONS: None. FINDINGS: Intra procedural imaging and fluoro. Please see the operative report IMPRESSION: IMAGE(S) OBTAINED DURING PROCEDURE. COMMENT: Quality ID 145: Final reports for procedures using fluoroscopy that document radiation exp osure indices, or exposure time and number of fluorographic images (if radiation exposure indices are not available) Please consult full operative report of the attending physician for description of the procedure. TECHNICAL DOCUMENTATION: JOB ID: [id number] [employer]- All Rights Reserved Reading location - IP/workstation name: [email or web address]
[2019-03-01] MEDS ORDERED: ACETAMINOPHEN 325 MG TABLET PO SCH (12:00)
[2019-03-01] MEDS ORDERED: ONDANSETRON 4 MG TAB.RAPDIS SL SCH (12:00)
[2019-03-01] MEDS ORDERED: OXYCODONE-ACETAMINOPHEN 5-325 MG TABLET PO SCH (12:00)
[2019-03-01] MEDS ORDERED: PHENYLEPHRINE HCL INJ/PF 10 MG/1 ML SDV ONE (14:46)
[2019-03-01] MEDS ORDERED: GLYCOPYRROLATE 1 MG/5 ML VIAL ONE (14:46)
[2019-03-01] MEDS ORDERED: ONDANSETRON 4 MG TAB.RAPDIS SL PRN (15:30)
[2019-03-01] MEDS: OXYCODONE-ACETAMINOPHEN 5-325 MG TABLET PO PRN ×2 (16:31→22:31)
[2019-03-01] MEDS: CEFAZOLIN 2 GM/D5W RTU 2 GM/50 ML RTUPB IV SCH ×2 (16:32→22:31)
[2019-03-02] MEDS: ACETAMINOPHEN 325 MG TABLET PO PRN ×2 (00:40→10:17)
[2019-03-02 01:08] VITALS: BP 172/70
--- NOTE | 2019-03-02 07:20 | PDOC DISCHARGE SUMMARY ---
General - Admit/Disc Date/PCP Admission Date/Primary Care Provider: 03/01/19 05:24 LEILANI RUDOLPH MD Discharge Date: 03/02/19 - Discharge Diagnosis (1) Left rotator cuff tear arthropathy Is this a current diagnosis for this admission?: Yes - Additional Information Resuscitation Status: Full Code Prescriptions: Oxycodone HCl/Acetaminophen [Percocet 5-325 mg Tablet] 1 tab PO Q6 #40 tab Home Medications: Clopidogrel Bisulfate [Clopidogrel] 75 mg PO DAILY 09/27/15 Levothyroxine Sodium [Synthroid] 175 mcg PO Q6AM 09/27/15 Amitriptyline HCl 25 mg PO QHS 06/07/17 Furosemide 20 mg PO DAILY 06/07/17 Gabapentin 300 mg PO QHS 06/07/17 Meloxicam [Mobic] 7.5 mg PO DAILY 02/11/19 Olmesartan/Amlodipin/Hcthiazid [Pqyaezk-Pgaigw-Mwbn 20-5-12.5] 1 tab PO DAILY 02/11/19 Pantoprazole Sodium 40 mg PO DAILY 02/11/19 Calcium Carbonate/Vitamin D3 [Calcium 600 + Vit D Tablet] 1 tab PO DAILY 03/01/19 Cefazolin Sodium [Ancef Inj 1 gm Vial] 2 gm IV Q8 #2 vial 03/01/19 Fluticasone Propionate [Flonase Nasal Lucan 50 Mcg/Lucan 16 gm] 1 spray NASL Q12 03/01/19 Lidocaine [Lidoderm 5% (700 mg) Transdermal Patch] 1 patch TP DAILY 03/01/19 Oxycodone HCl/Acetaminophen [Percocet 5-325 mg Tablet] 1 tab PO Q6 #40 tab Quinine Sulfate [Qualaquin 324 mg Capsule] 160 mg PO HSP PRN 03/01/19 History of Present Illness History of Present Illness: CLEMENCIA AGRAWAL is a 78 year old female Patient is a 78-year-old white female with progressive left shoulder pain and functional disability which is unresponsive to conservative therapy. The patient is admitted for elective left shoulder arthroplasty. Hospital Course Hospital Course: Patient is admitted through the operating where she undergoes a left reverse shoulder arthroplasty complicated by an intraoperative humerus fracture. This is dealt with an open reduction internal fixation around a longstem. Tolerates the procedure without any further complications and returned to floor in satisfactory condition. Pain control is an issue. Distal neurovascular examination including radial nerve motor function is intact postoperatively. Physical Exam Vital Signs: Temp Pulse Resp BP Pulse Ox 37.2 C 88 18 172/70 H 90 L 03/02/19 00:40 03/02/19 00:40 03/02/19 00:40 03/02/19 00:40 03/02/19 00:40 Intake & Output 03/01/19 03/02/19 03/03/19 06:59 06:59 06:59 Intake Total 0 6709 Output Total 2830 Balance 0 3879 Weight 88.1 kg Physical Exam: Middle-aged white female lying in bed in minor distress. Next to her in the recliner is her daughter. They both alert, oriented, and appropriate. General appearance: PRESENT: mild distress, well-developed, well-nourished Head exam: PRESENT: normocephalic Respiratory exam: PRESENT: unlabored Cardiovascular exam: PRESENT: RRR Pulses: PRESENT: normal radial pulses Vascular exam: PRESENT: normal capillary refill GI/Abdominal exam: PRESENT: soft Rectal exam: PRESENT: deferred Extremities exam: PRESENT: other - Left shoulder dressing is clean dry and intact. Shoulder abduction pillow is in place. Left radial nerve motor function is 5/5 to manual testing. There is brisk capillary refill. Neurological exam: PRESENT: alert, awake, oriented to person, oriented to place, oriented to time, oriented to situation. ABSENT: motor sensory deficit Psychiatric exam: PRESENT: appropriate affect, normal mood. ABSENT: homicidal ideation, suicidal ideation Skin exam: PRESENT: dry, intact, warm. ABSENT: cyanosis, rash Results Laboratory Results: 03/01/19 06:15 03/01/19 06:15 Blood Type A POSITIVE Antibody Screen NEGATIVE Impressions: Fluoroscopy 03/01/19 00:00 IMPRESSION: IMAGE(S) OBTAINED DURING PROCEDURE. Shoulder X-Ray 03/01/19 00:00 IMPRESSION: IMAGE(S) OBTAINED DURING PROCEDURE. Status: Imported from PACS Qualifiers - * PATIENT BEING DISCHARGED WITH ANY OF THE FOLLOWING DIAGNOSIS: No VTE patient discharged on overlapping Therapy?: No Reason(s) for not prescribing Overlap Therapy:: Not indicated Acute Heart Failure - Is this a Heart Failure Patient?: No Plan Discharge Plan: Patient be discharged home with home health services and DME. Follow-up with Dr. Mary and [facility] for surgery in 2 weeks for staple removal.
[2019-03-02] MEDS ORDERED: HYDROCODONE/ACETAMINOPHEN 5-325 MG TABLET PO PRN (07:33)
[2019-03-02 07:34] LABS: HEMATOCRIT 31.8 % (36.0-47.0); HEMOGLOBIN 10.8 g/dL (12.0-15.5); MEAN CORPUSCULAR HEMOGLOBIN 32.6 pg (27.0-33.4); MEAN CORPUSCULAR HGB CONC 34.1 g/dL (32.0-36.0); MEAN CORPUSCULAR VOLUME 96 fl (80-97); PLATELET COUNT 307 10^3/uL (150-450); RED BLOOD COUNT 3.33 10^6/uL (3.72-5.28); RED CELL DISTRIBUTION WIDTH 14.4 % (11.5-14.0); WHITE BLOOD COUNT 11.8 10^3/uL (4.0-10.5)
[2019-03-02 08:01] LABS: ANION GAP 8 (5-19); BLOOD UREA NITROGEN 14 mg/dL (7-20); CALCIUM 9.6 mg/dL (8.4-10.2); CARBON DIOXIDE 26 mmol/L (22-30); CHLORIDE 97 mmol/L (98-107); GLUCOSE 110 mg/dL (75-110); POTASSIUM 4.8 mmol/L (3.6-5.0); SODIUM 130.7 mmol/L (137-145)
== END 2019-03-02 12:35 | disposition home health service (06) | DRG 483 ==
LOC: INOR 05:24 → 4S 11:37
PROVIDERS: ADMIT Orthopaedic Surgery; ATTEND Orthopaedic Surgery
PROC: 0LQ20ZZ Repair Left Shoulder Tendon, Open Approach (ICD-10-PCS; 2019-03-01)
PROC: 0RRK00Z Replacement of Left Shoulder Joint with Reverse Ball and Socket Synthetic Substitute, Open Approach (ICD-10-PCS; principal; 2019-03-01 07:30)
DX: M19.012 Primary osteoarthritis, left shoulder (principal); M96.622 Fracture of humerus following insertion of orthopedic implant, joint prosthesis, or bone plate, left arm; E03.9 Hypothyroidism, unspecified; M75.102 Unspecified rotator cuff tear or rupture of left shoulder, not specified as traumatic; Y83.8 Other surgical procedures as the cause of abnormal reaction of the patient, or of later complication, without mention of misadventure at the time of the procedure; Y92.234 Operating room of hospital as the place of occurrence of the external cause; Z79.82 Long term (current) use of aspirin; E21.3 Hyperparathyroidism, unspecified; I10 Essential (primary) hypertension; M10.9 Gout, unspecified; K21.9 Gastro-esophageal reflux disease without esophagitis; Z82.61 Family history of arthritis; Z96.653 Presence of artificial knee joint, bilateral; Z96.612 Presence of left artificial shoulder joint; E66.3 Overweight; Z68.36 Body mass index [BMI] 36.0-36.9, adult
CPT/HCPCS: 36415; 80048; 84132; 85027; 85610; 85730; 86850; 86900; 86901; 88304; 88305; 88311; J0131; J0690; J1100; J1741; J2250; J2270; J2370; J2405; J2704; J3010; J3370; J3490; J7050; J7060; J7120

== ENCOUNTER → 2019-07-13 | Outpatient (CLI) | payer MEDICARE, OTHER ==
[2019-07-13 10:52] LABS: ABSOLUTE BASOPHILS # (AUTO) 0.1 10^3/uL (0.0-0.2); ABSOLUTE EOSINOPHILS # (AUTO) 0.4 10^3/uL (0.0-0.6); ABSOLUTE LYMPHOCYTES (AUTO) 1.4 10^3/uL (0.5-4.7); ABSOLUTE MONOCYTES (AUTO) 0.4 10^3/uL (0.1-1.4); ABSOLUTE NEUT (AUTO) 3.1 10^3/uL (1.7-8.2); EOSINOPHILS % (AUTO) 6.8 % (0-6); HEMATOCRIT 34.5 % (36.0-47.0); HEMOGLOBIN 11.6 g/dL (12.0-15.5); LYMPHOCYTES % (AUTO) 27.2 % (13-45); MEAN CORPUSCULAR HEMOGLOBIN 32.4 pg (27.0-33.4); MEAN CORPUSCULAR HGB CONC 33.6 g/dL (32.0-36.0); MEAN CORPUSCULAR VOLUME 97 fl (80-97); MONOCYTES % (AUTO) 7.1 % (3-13); PLATELET COUNT 312 10^3/uL (150-450); RED BLOOD COUNT 3.58 10^6/uL (3.72-5.28); RED CELL DISTRIBUTION WIDTH 14.9 % (11.5-14.0); SEGMENTED NEUTROPHILS % (AUTO) 57.9 % (42-78); TOTAL CELLS COUNTED % (AUTO) 100 %; WHITE BLOOD COUNT 5.3 10^3/uL (4.0-10.5)
[2019-07-13 11:12] LABS: ANION GAP 9 (5-19); BLOOD UREA NITROGEN 27 mg/dL (7-20); CALCIUM 9.6 mg/dL (8.4-10.2); CARBON DIOXIDE 28 mmol/L (22-30); CHLORIDE 98 mmol/L (98-107); GLUCOSE 91 mg/dL (75-110)
--- NOTE | 2019-07-13 12:17 | EKG REPORT ---
SEVERITY:- DEFECTIVE ECG - SINUS RHYTHM NONSPECIFIC INTRAVENTRICULAR CONDUCTION DELAY LATE PRECORDIAL TRANSITION. : Confirmed by: Connor Cochran MD 13-Jul-2019 12:17:17
== END ==
LOC: OD 10:01
PROVIDERS: ATTEND Orthopaedic Surgery
DX: Z01.89 Encounter for other specified special examinations (principal); Z01.818 Encounter for other preprocedural examination; Z01.810 Encounter for preprocedural cardiovascular examination
CPT/HCPCS: 36415; 80048; 85025; 87070; 93005; 93010

== ENCOUNTER 2019-10-11 07:33 | Day surgery (SDC) | payer MEDICARE, OTHER ==
[2019-10-04 09:25] LABS: APPEARANCE,URINE SLIGHTLY-CLOUDY; BILIRUBIN,URINE NEGATIVE (NEGATIVE); COLOR,URINE YELLOW; GLUCOSE, URINE NEGATIVE (NEGATIVE); KETONES,URINE NEGATIVE (NEGATIVE); LEUKOCYTE ESTERASE,URINE LARGE (NEGATIVE); NITRITE,URINE NEGATIVE (NEGATIVE); PROTEIN,URINE NEGATIVE (NEGATIVE); URINE SPECIFIC GRAVITY 1.012; UROBILINOGEN,URINE NEGATIVE mg/dL (<2.0)
[2019-10-04 09:33] LABS: HEMATOCRIT 40.5 % (36.0-47.0); HEMOGLOBIN 13.8 g/dL (12.0-15.5); MEAN CORPUSCULAR HEMOGLOBIN 32.2 pg (27.0-33.4); MEAN CORPUSCULAR VOLUME 95 fl (80-97); PLATELET COUNT 376 10^3/uL (150-450); RED BLOOD COUNT 4.28 10^6/uL (3.72-5.28); RED CELL DISTRIBUTION WIDTH 13.7 % (11.5-14.0); WHITE BLOOD COUNT 7.5 10^3/uL (4.0-10.5)
[2019-10-04 10:42] LABS: ANION GAP 12 (5-19); BLOOD UREA NITROGEN 17 mg/dL (7-20); CALCIUM 10.1 mg/dL (8.4-10.2); CARBON DIOXIDE 29 mmol/L (22-30); CHLORIDE 92 mmol/L (98-107); GLUCOSE 93 mg/dL (75-110); POTASSIUM 4.2 mmol/L (3.6-5.0)
--- NOTE | 2019-10-04 11:50 | RADIOLOGY REPORT (SQ) ---
EXAM DESCRIPTION: CHEST PA/LATERAL COMPLETED DATE/TIME: 10/04/2019 9:47 am REASON FOR STUDY: PRE-OP COMPARISON: PA and lateral views of the chest from 02/03/2019. EXAM PARAMETERS: NUMBER OF VIEWS: two views TECHNIQUE: PA and lateral views of the chest were obtained RADIATION DOSE: NA LIMITATIONS: none FINDINGS: LUNGS AND PLEURA: No consolidation, pleural effusion or pneumothorax. MEDIASTINUM AND HILAR STRUCTURES: No mediastinal or hilar contour abnormality. HEART AND VASCULAR STRUCTURES: Stable enlarged cardiac silhouette. BONES: No acute findings. HARDWARE: Bilateral shoulder arthroplasties. OTHER: Eventration of the right hemidiaphragm. IMPRESSION: Cardiomegaly without a superimposed acute cardiopulmonary process. TECHNICAL DOCUMENTATION: JOB ID: [id number] 2010 [employer]- All Rights Reserved Reading location - IP/workstation name: [email or web address]
--- NOTE | 2019-10-04 13:37 | EKG REPORT ---
SEVERITY:- BORDERLINE ECG - SINUS RHYTHM PROBABLE LEFT ATRIAL ABNORMALITY BORDERLINE IVCD WITH LAD : Confirmed by: Connor Cochran MD 04-Oct-2019 13:36:24
[~2019-10-11 07:33] MED LIST changes: -BUPIVACAINE INJ/PF LIPOSOME/PF 266 MG/20 ML SDV INJ PRN; -CEFAZOLIN INJ 1 GM VIAL IV PRN; -CEFAZOLIN INJ 1 GM VIAL ONE; +CLINDAMYCIN 600 MG/D5W RTU 600 MG/50 ML RTUPB IV PRN; +FENTANYL CITRATE INJ/PF 100 MCG/2 ML AMPUL ONE; -IBUPROFEN 800 MG in NORMAL SALINE 250 ML IV PRN; +MIDAZOLAM 2 MG/2 ML INJ ONE; -OXYCODONE HCL SR 10 MG TABLET PO ONE; -OXYCODONE HCL SR 10 MG TABLET PO PRN; -PANTOPRAZOLE SODIUM 20 MG TABLET.DR PO ONE; -PANTOPRAZOLE SODIUM 20 MG TABLET.DR PO PRN; +PROPOFOL INJ 200 MG/20 ML VIAL IV ONE; -VANCOMYCIN HCL 1,000 MG in DEXTROSE 5%-WATER 250 ML IV PRN
[2019-10-11] MEDS ORDERED: ONDANSETRON HCL INJ/PF 4 MG/2 ML SDV ONE (08:14)
[2019-10-11] MEDS ORDERED: PHENYLEPHRINE HCL INJ/PF 10 MG/1 ML SDV ONE (08:14)
[2019-10-11] MEDS ORDERED: SUCCINYLCHOLINE CHLORIDE INJ 200 MG/10 ML VIAL ONE (08:14)
[2019-10-11] MEDS ORDERED: ROCURONIUM BROMIDE INJ 50 MG/5 ML VIAL IV ONE (08:14)
[2019-10-11] MEDS ORDERED: DEXAMETHASONE SOD PHOSPHATE INJ 4 MG/1 ML VIAL ONE (08:14)
[2019-10-11] MEDS ORDERED: GLYCOPYRROLATE 1 MG/5 ML VIAL ONE (08:14)
[2019-10-11] MEDS ORDERED: CLINDAMYCIN 600 MG/D5W RTU 600 MG/50 ML RTUPB IV ONE (08:19)
[2019-10-11 09:01] LABS: INTERNATIONAL RATION (INR) 0.95; PROTHROMBIN TIME 12.7 SEC (11.4-15.4)
[2019-10-11] MEDS ORDERED: BUPIVACAINE HCL 0.25 % INJ/PF (2.5 MG/1 ML) 30 ML VIAL ONE (09:23)
[2019-10-11] MEDS ORDERED: LIDOCAINE 1%/EPINEPHRINE INJ 20 ML VIAL ONE (09:24)
[2019-10-11] MEDS ORDERED: FENTANYL CITRATE INJ/PF 100 MCG/2 ML AMPUL IV PRN ×4 (09:45→13:16)
[2019-10-11] MEDS ORDERED: MORPHINE SULFATE 10 MG/ML INJ IV PRN (09:45)
[2019-10-11] MEDS ORDERED: MEPERIDINE HCL/PF INJ 25 MG/1 ML DISP.SYRIN IV PRN (09:45)
[2019-10-11] MEDS ORDERED: DIPHENHYDRAMINE HCL 50 MG/ML VIAL IV PRN (09:45)
[2019-10-11] MEDS ORDERED: ONDANSETRON HCL INJ/PF 4 MG/2 ML SDV IV PRN (09:45)
[2019-10-11] MEDS ORDERED: TRANEXAMIC ACID INJ/PF 1,000 MG/10 ML SDV ONE (12:27)
--- NOTE | 2019-10-11 12:40 | Operative Report ---
Operative Report DATE OF SURGERY: 10/11/19 PREOPERATIVE DIAGNOSIS: Left humeral nonunion OPERATION: Takedown of nonunion and open reduction internal fixation of humerus fracture with application of VTOS bone graft substitute SURGEON: HILTON HIGGINS ANESTHESIA: GA TISSUE REMOVED OR ALTERED: Nonunion tissue to pathology ESTIMATED BLOOD LOSS: 150 PROCEDURE: With the patient in a beachchair position on the operating table the left upper extremity and forequarter prepped and draped in a sterile fashion. Longitudinal incision was made over the anterolateral aspect of the midportion humerus and the distal portion of the humerus. Sharp dissection was used carried incision down to the underlying humerus. Nerve stimulators used to ensure that the radial nerve structures are avoided during this dissection. A talc cable which is encountered is removed. The nonunion site is exposed. It is taken down using a rongeur. Tissue was sent for pathologic evaluation. Soft tissue was then elevated off the humerus on either side of the nonunion circumferentially. A [place] 3.5 mm 9 hole plate is applied and secured to the distal fragment with 4 screws. Is then secured to the proximal fragment using 3 FiberWire cable constructs. Construct is checked using fluoroscopy and felt to be adequate. The wound is then irrigated with pulse lavage and 3 L normal saline containing Betadine. V toss bone substitute is then packed into the gap between the bone surfaces. The wound is then closed in layers interrupted Vicryl followed by preston. A sterile compressive dressing and shoulder immobilizer applied and the patient is returned to the PACU in satisfactory condition.
--- NOTE | 2019-10-11 12:41 | Discharge Summary ---
Discharge Summary (SDC) - Discharge Final Diagnosis: Left humeral nonunion Date of Surgery: 10/11/19 Discharge Date: 10/11/19 Condition: Good Forms: ASU Anesthesia D/C Instruction, Discharge POC-Surgical Service Treatment or Instructions: DR. GISELA PAYAN IS 10/28/[address] SALINAS PAYAN IS 10/27/2019 AT 1050 AM Referrals: HILTON HIGGINS MD [ACTIVE STAFF] - 10/28/19 10:00 am Discharge Diet: Regular Respiratory Treatments at Home: Deep Breathing/Coughing Discharge Activity: Balance Activity w/Rest, No tub bath Home Care Assistance: None Needed Report the Following to Your Physician Immediately: Shortness of Breath, Fever over 101 Degrees, Drainage-Foul Smelling
[2019-10-11] MEDS ORDERED: FENTANYL CITRATE INJ/PF 100 MCG/2 ML AMPUL ONE (13:17)
[2019-10-11] MEDS ORDERED: OXYCODONE HCL IR 5 MG TABLET PO PRN (14:12)
[2019-10-11] MEDS ORDERED: OXYCODONE HCL IR 5 MG TABLET ONE (14:15)
--- NOTE | 2019-10-11 14:46 | RADIOLOGY REPORT (SQ) ---
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 TECHNIQUE: Intra-operative images acquired during surgical procedure to evaluate progress. NUMBER OF IMAGES: 3 digital fluoroscopic images LIMITATIONS: None. FINDINGS: Intra procedural imaging and fluoro during placement of a left distal humerus fixation gautam te and multiple screws. Please see the operative report for further details IMPRESSION: IMAGE(S) OBTAINED DURING PROCEDURE. COMMENT: Quality ID 145: Final reports for procedures using fluoroscopy that document radiation exp osure indices, or exposure time and number of fluorographic images (if radiation exposure indices are not available) Please consult full operative report of the attending physician for description of the procedure. TECHNICAL DOCUMENTATION: JOB ID: [id number] 2010 [employer]- All Rights Reserved Reading location - IP/workstation name: [email or web address]
--- NOTE | 2019-10-11 14:46 | RADIOLOGY REPORT (SQ) ---
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 TECHNIQUE: Intra-operative images acquired during surgical procedure to evaluate progress. NUMBER OF IMAGES: 3 digital fluoroscopic images LIMITATIONS: None. FINDINGS: Intra procedural imaging and fluoro during placement of a left distal humerus fixation gautam te and multiple screws. Please see the operative report for further details IMPRESSION: IMAGE(S) OBTAINED DURING PROCEDURE. COMMENT: Quality ID 145: Final reports for procedures using fluoroscopy that document radiation exp osure indices, or exposure time and number of fluorographic images (if radiation exposure indices are not available) Please consult full operative report of the attending physician for description of the procedure. TECHNICAL DOCUMENTATION: JOB ID: [id number] 2010 [employer]- All Rights Reserved Reading location - IP/workstation name: [email or web address]
[2019-10-11 15:43] VITALS: BP 173/84
== END 2019-10-11 15:54 | disposition home or self-care (01) ==
LOC: OROUT 07:33
PROVIDERS: ATTEND Orthopaedic Surgery
DX: M79.602 Pain in left arm (principal); Z79.899 Other long term (current) drug therapy; Z79.01 Long term (current) use of anticoagulants; Z88.0 Allergy status to penicillin; Z79.82 Long term (current) use of aspirin; I10 Essential (primary) hypertension; E03.9 Hypothyroidism, unspecified; E66.3 Overweight; Z68.36 Body mass index [BMI] 36.0-36.9, adult; E21.3 Hyperparathyroidism, unspecified; S42.302K Unspecified fracture of shaft of humerus, left arm, subsequent encounter for fracture with nonunion; X58.XXXD Exposure to other specified factors, subsequent encounter
CPT/HCPCS: 93005; 36415 ×2; 84132; 85027; 85610; 85730; 80048; 81001; 88305 ×2; 88311; 71046; 73060; 93010; 01630; 24435; J2250; J3490 ×3; J1100; J3010; J2370; J0330; J2405; J2704; A9270; C1713; C1894; C1898

== ENCOUNTER → 2020-08-10 | Outpatient (CLI) | payer MEDICARE, OTHER ==
[2020-08-10 11:22] LABS: ABSOLUTE BASOPHILS # (AUTO) 0.1 10^3/uL (0.0-0.2); ABSOLUTE EOSINOPHILS # (AUTO) 0.3 10^3/uL (0.0-0.6); ABSOLUTE LYMPHOCYTES (AUTO) 1.5 10^3/uL (0.5-4.7); ABSOLUTE MONOCYTES (AUTO) 0.4 10^3/uL (0.1-1.4); ABSOLUTE NEUT (AUTO) 2.9 10^3/uL (1.7-8.2); BASOPHILS % (AUTO) 1.1 % (0-2); EOSINOPHILS % (AUTO) 5.6 % (0-6); HEMATOCRIT 35.8 % (36.0-47.0); HEMOGLOBIN 12.3 g/dL (12.0-15.5); LYMPHOCYTES % (AUTO) 28.5 % (13-45); MEAN CORPUSCULAR HEMOGLOBIN 31.9 pg (27.0-33.4); MEAN CORPUSCULAR HGB CONC 34.4 g/dL (32.0-36.0); MEAN CORPUSCULAR VOLUME 93 fl (80-97); MONOCYTES % (AUTO) 7.7 % (3-13); PLATELET COUNT 317 10^3/uL (150-450); RED BLOOD COUNT 3.86 10^6/uL (3.72-5.28); RED CELL DISTRIBUTION WIDTH 14.4 % (11.5-14.0); SEGMENTED NEUTROPHILS % (AUTO) 57.1 % (42-78); TOTAL CELLS COUNTED % (AUTO) 100 %; WHITE BLOOD COUNT 5.1 10^3/uL (4.0-10.5)
[2020-08-10 12:18] LABS: ERYTHROCYTE SEDIMENTATION RATE 24 mm/hr (0-30)
== END ==
LOC: OD 10:10
PROVIDERS: ATTEND Orthopaedic Surgery
DX: Z01.812 Encounter for preprocedural laboratory examination (principal)
CPT/HCPCS: 36415; 85025; 85652; 86140

== ENCOUNTER 2020-09-01 09:29 | Day surgery (SDC) | payer MEDICARE, OTHER ==
[~2020-09-01 09:29] MED LIST changes: -CLINDAMYCIN 600 MG/D5W RTU 600 MG/50 ML RTUPB IV PRN; +DEXAMETHASONE SOD PHOSPHATE INJ 4 MG/1 ML VIAL ONE; -FENTANYL CITRATE INJ/PF 100 MCG/2 ML AMPUL ONE; +GLYCOPYRROLATE 1 MG/5 ML VIAL ONE; -MIDAZOLAM 2 MG/2 ML INJ ONE; +ONDANSETRON HCL INJ/PF 4 MG/2 ML SDV ONE; +PHENYLEPHRINE HCL INJ/PF 10 MG/1 ML SDV ONE; -PROPOFOL INJ 200 MG/20 ML VIAL IV ONE; +ROCURONIUM BROMIDE INJ 50 MG/5 ML VIAL IV ONE
[2020-09-01] MEDS ORDERED: MIDAZOLAM 2 MG/2 ML INJ ONE (11:52)
[2020-09-01] MEDS ORDERED: FENTANYL CITRATE INJ/PF 100 MCG/2 ML AMPUL ONE (11:52)
[2020-09-01] MEDS ORDERED: PROPOFOL INJ 200 MG/20 ML VIAL IV ONE (11:53)
[2020-09-01] MEDS ORDERED: ROPIVACAINE HCL 0.2% INJ/PF (2 MG/ML) 20 ML SDV ONE (11:53)
[2020-09-01] MEDS ORDERED: LIDOCAINE 1% INJ-PF (10 MG/ML) 30 ML SDV ONE (11:54)
[2020-09-01] MEDS ORDERED: BUPIVACAINE HCL 0.5 % INJ/PF 30 ML SDV ONE (11:54)
[2020-09-01] MEDS ORDERED: ROPIVACAINE HCL 0.5% INJ/PF (5 MG/1 ML) 30 ML SDV ONE (12:05)
[2020-09-01] MEDS ORDERED: CLINDAMYCIN PHOSPHATE INJ 300 MG/2 ML SDV ONE (12:32)
[2020-09-01] MEDS ORDERED: CLINDAMYCIN 900 MG/D5W RTU 900 MG/50 ML RTUPB IV ONE (12:35)
--- NOTE | 2020-09-01 12:36 | Discharge Summary ---
Discharge Summary (SDC) - Discharge Final Diagnosis: Left Humerus Nonunion Date of Surgery: 09/01/20 Discharge Date: 09/01/20 Condition: Good Treatment or Instructions: Schedule Follow Up w/ Dr. Melvin Bustillo @ [facility] for Surgery to be seen in 10-14 days or as scheduled [place]: [place]: [place]: May remove dressing on postop day #3, keep incision covered and dry. Cryocuff to shoulder May begin range of motion hand, wrist and elbow range of motion 4x per day or as tolerated. May remove sling for hygiene purposes otherwise continue it at all times. Stool softener of choice when on pain medication. USE OF JHKA-ZOD-WTLBLXZ IBUPROFEN: Ibuprofen (Advil, Nuprin, Medipren, Motrin IB) is a medication for fever and pain control. In addition, it has anti- inflammatory effects which may be beneficial, especially in the treatment of injuries. It's best to take ibuprofen with food. Persons with ulcer disease or allergy to aspirin should notify their physician of this before taking ibuprofen. Ibuprofen can be given every four to six hours, for a total of four doses daily. Age Pain or fever dose Antiinflammatory dose 6-8 yr 200 mg (1 tab) 200 mg (1 tab) 9-11 yr 200 mg (1 tab) 200-400 mg (1-2 tab) 11-14 yr 200-400 mg (1-2 tab) 400 mg (2 tab) 15-adult 400 mg (2 tab) 600 mg (3 tab) ORAL NARCOTIC MEDICATION: You have been given a prescription for pain control. This medication is a narcotic. It's best taken with food, as nausea can result if taken on an empty stomach. Don't operate machinery or drive within six hours of taking this medication. Do not combine this medicine with alcohol, or with any medication which can cause sedation (such as cold tablets or sleeping pills) unless you get permission from the physician. Narcotics tend to cause constipation. If possible, drink plenty of fluids and eat a diet high in fiber and fruits. Please be aware that prescription narcotics also have the potential for abuse. People become addicted to these medications because of the general sense of wellbeing that they induce. This feeling along with a significant reduction in tension, anxiety, and aggression provides a stimulating seductive quality to these drugs. Once your pain is under control, we encourage you to discard your unused narcotics. Prescriptions: Oxycodone HCl/Acetaminophen [Percocet 7.5-325 mg Tablet] 1 tab PO Q6 #25 tab Discharge Diet: As Tolerated Respiratory Treatments at Home: Deep Breathing/Coughing, Incentive Spirometer Discharge Activity: No Lifting Over 10 Pounds, No Lifting/Push/Pulling Report the Following to Your Physician Immediately: Fever over 101 Degrees, Unusual Bleeding, Redness, Swelling, Warmth, Increased Soreness
[2020-09-01] MEDS ORDERED: DIPHENHYDRAMINE HCL 50 MG/ML VIAL IV PRN (13:12)
[2020-09-01] MEDS ORDERED: MORPHINE SULFATE 10 MG/ML INJ IV PRN ×2 (13:12→16:30)
[2020-09-01] MEDS ORDERED: FENTANYL CITRATE INJ/PF 100 MCG/2 ML AMPUL IV PRN ×3 (13:12)
[2020-09-01] MEDS ORDERED: OXYCODONE-ACETAMINOPHEN 5-325 MG TABLET PO PRN ×3 (13:12→16:30)
[2020-09-01] MEDS ORDERED: PROMETHAZINE HCL INJ 25 MG/1 ML VIAL IV PRN ×2 (13:12)
[2020-09-01] MEDS ORDERED: MEPERIDINE HCL/PF INJ 25 MG/1 ML DISP.SYRIN IV PRN (13:12)
[2020-09-01] MEDS ORDERED: VANCOMYCIN HCL INJ 1000 MG VIAL ONE (15:53)
[2020-09-01] MEDS ORDERED: ONDANSETRON HCL INJ/PF 4 MG/2 ML SDV IV PRN (16:30)
--- NOTE | 2020-09-01 16:50 | Operative Report ---
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 Patient subsequently required additional open reduction to fixation but this also went on to nonunion and failure. Patient was then sent to mt at which point we discussed treatment options given the retained hardware and instability of the fracture decision was made to proceed with operative treatment. Risk and benefits were explained patient verbalized understanding consented for surgery procedure. Procedure In Detail: Patient was seen and evaluated in the preoperative holding area. The LEFT upper extremity was initialized and marked. Patient received 900 mg of clindamycin IV for bacterial prophylaxis. Patient was taken back to the operative room where transferred to the operative table and placed under general anesthesia. Once they were adequately anesthetized patient placed in the beachchair position. Cervical spine was placed in neutral position all bony prominences were padded including nonoperative upper extremity and bilateral lower extremity. A surgical team debriefing was performed ensuring all instrumentation was available, the surgical procedure was discussed with possible concerns reviewed. The upper extremity was prepped with ChloraPrep draped in a sterile fashion. A timeout was done identifying correct patient, procedure and extremity everyone in attendance agree with this and verbalized no concerns. Prior skin incision was utilized and extended proximally and distally. Blunt dissection was performed. There is significant scarring of the deltopectoral interval which was utilized. The distal extension via the anterior lateral approach between the triceps and brachialis was utilized which was also scarred. The radial nerve was identified distally within the wound and intact. A nerve stimulator was applied which confirmed intact radial nerve preoperatively. Once the nerve was identified and protected the prior fracture site was exposed. There was a small seroma within the pseudoarthrosis. Aerobic/anaerobic cultures were obtained. The biceps muscle and medial aspect of the brachialis were retracted in a medial direction to protect the brachial artery and median nerve. Any peripheral bleeding was controlled with bipolar cautery. Once the humerus proximally and distally was exposed the prior hardware was successfully removed. There was evidence of hypertrophic bone and the bone edges were then aggressively debrided. A large reamer was then placed within the distal fragment in order to get normal-appearing bony. The proximal distal fracture edges were debrided with a bur and irrigation until normal-appearing bone was identified. The distal aspect of the prosthesis was telescoped within the distal humerus successfully shortening the bone in order to provide interfragmentary compression and optimal environment for osseous healing. A Cooper 3.5 millimeter compression plate was then applied to the lateral aspect of the humerus and secured with cortical fixation. An additional screw was then placed through the compression hole distally providing interfragmentary compression. An additional compression screw was placed providing further compression. A total of 3 points of fixation were obtained proximally and distally. I then placed a large 5.0 mm narrow plate anteriorly which was secured with a locking s crew proximally and a provisional cortical screws distally. The plate was further secured with additional locking screws proximally and distally. C-arm fluoroscopy was obtained confirming acceptable reduction of the fracture. The plate was then further secured proximally with a Kinamed cable x2 with an additional cable distally tensioned at high tension. Upon passing the cable blunt dissection was performed around the humerus to ensure there is no intervening soft tissue or neurovascular structures. Wound was then copiously irrigated with normal saline. Some of the hypertrophic bone which was debrided earlier was prepared on the back table and placed at the level of the fracture site. 10 cc of Cooper bio 4 bone graft was inserted into the nonunion site. 1 g of vancomycin powder was placed for bacterial prophylaxis. Once again the nerve stimulator was placed along the radial nerve confirming conductivity. Deltopectoral interval and anterolateral fascial planes were closed with 0 Vicryl suture. Subcutaneous tissues were closed with interrupted 3-0 Monocryl suture. Skin was closed with preston and a Lauren Plex dressing applied. Patient was placed in a sling. Sponge counts, instrument counts, needle counts were correct. Patient was then awoken from anesthesia. Transferred from the operating room table to the operating room stretcher. There was no intraoperative complications patient tolerated procedure well stable to PACU. Postop plan: Patient follow in the office in 2 weeks for recheck we will obtain radiographs at that time. She will maintain nonweightbearing of the left upper extremity beginning on the elbow range of motion.
--- NOTE | 2020-09-01 18:11 | RADIOLOGY REPORT (SQ) ---
EXAM DESCRIPTION: HUMERUS LEFT IMAGES COMPLETED DATE/TIME: 09/01/2020 4:26 pm REASON FOR STUDY: Post Op S42.322K DISPL TRANSVERSE FX SHAFT OF HUMER, L ARM, 7THK COMPARISON: Left humerus radiograph, 06/13/2020 NUMBER OF VIEWS: One view TECHNIQUE: Two radiographic images were acquired of the left humerus to include elbow and shoulder i n at least one projection. LIMITATIONS: None. FINDINGS: Postoperative portable view of the left humerus demonstrates plate and screw fixation den ersing the proximal to distal humerus. Left glenohumeral arthroplasty not significantly changed. Os sification in the soft tissues and expected soft tissue changes consistent with recent surgical proce dure. IMPRESSION: Postoperative radiograph left humerus. TECHNICAL DOCUMENTATION: JOB ID: [id number] 2010 [employer]- All Rights Reserved Reading location - IP/workstation name: [email or web address]
[2020-09-01] MEDS ORDERED: EPINEPHRINE INJ/PF 1 MG/1 ML AMPULE ONE (18:33)
--- NOTE | 2020-09-01 19:16 | Progress Note ---
Provider Note Provider Note: Anesthesia Note: Pt had been discharged from PACU and was being prepared for discharge from [facility] when she fell faint and had a syncope episode while on the toilet. Upon my arrival the pt was sitting on the bowl, awake but not fully responsive, lightheaded. She appeared pale. VS were P 102, BP 71/40, RR 14 SaO2 96. Her IV had been removed, so I gave her Ephedrine 50mg IM. Over the next few minutes we called FEATHER SEPARATOR and transferred her to the bed. BP was 150/74, Pulse 91, SaO2 95% on O2 3l nc. Pt became increasingly aware and responsive. VS remained stable while a 12-lead EKG was done, showing NSR 94 Borderline LAD, Otherwise normal, essentially unchanged from baseline. Dr Bustillo was notified who agreed to admitting the pt to the hospital if warranted. Nursing heavy equipment supervisor notified, while pt continued to be monitored and stable. --Jean Claude Haro MD
--- NOTE | 2020-09-01 22:05 | EKG REPORT ---
SEVERITY:- OTHERWISE NORMAL ECG - SINUS RHYTHM BORDERLINE LEFT AXIS DEVIATION : Confirmed by: Bertha Rausch 01-Sep-2020 22:05:24
[2020-09-02 05:03] LABS: ABSOLUTE LYMPHOCYTES (AUTO) 1.2 10^3/uL (0.5-4.7); ABSOLUTE MONOCYTES (AUTO) 0.6 10^3/uL (0.1-1.4); ABSOLUTE NEUT (AUTO) 5.2 10^3/uL (1.7-8.2); BASOPHILS % (AUTO) 0.1 % (0-2); HEMATOCRIT 24.2 % (36.0-47.0); HEMOGLOBIN 8.3 g/dL (12.0-15.5); LYMPHOCYTES % (AUTO) 16.9 % (13-45); MEAN CORPUSCULAR HEMOGLOBIN 31.7 pg (27.0-33.4); MEAN CORPUSCULAR HGB CONC 34.5 g/dL (32.0-36.0); MEAN CORPUSCULAR VOLUME 92 fl (80-97); MONOCYTES % (AUTO) 8.6 % (3-13); PLATELET COUNT 181 10^3/uL (150-450); RED BLOOD COUNT 2.63 10^6/uL (3.72-5.28); RED CELL DISTRIBUTION WIDTH 14.3 % (11.5-14.0); SEGMENTED NEUTROPHILS % (AUTO) 74.4 % (42-78); TOTAL CELLS COUNTED % (AUTO) 100 %
[2020-09-02 08:30] VITALS: BP 131/55
--- NOTE | 2020-09-02 13:00 | RADIOLOGY REPORT (SQ) ---
EXAM DESCRIPTION: NO CHG FLUORO; HUMERUS LEFT IMAGES COMPLETED DATE/TIME: 09/01/2020 5:57 pm REASON FOR STUDY: ORIF L HUMERUS S42.322K DISPL TRANSVERSE FX SHAFT OF HUMER, L ARM, 7THK COMPARISON: None. FLUOROSCOPY TIME: 0.3 minute None images saved to PACS. TECHNIQUE: Intra-operative images acquired during surgical procedure to evaluate progress. NUMBER OF IMAGES: 9 LIMITATIONS: None FINDINGS: Internal fixation site of displaced fracture at the level of the stem of the prosthesis. IMPRESSION: IMAGE(S) OBTAINED DURING PROCEDURE. COMMENT: Quality ID 145: Final reports for procedures using fluoroscopy that document radiation exp osure indices, or exposure time and number of fluorographic images (if radiation exposure indices are not available) Please consult full operative report of the attending physician for description of the procedure. TECHNICAL DOCUMENTATION: JOB ID: [id number] 2010 [facility]- All Rights Reserved Reading location - IP/workstation name: [email or web address]
--- NOTE | 2020-09-02 13:00 | RADIOLOGY REPORT (SQ) ---
EXAM DESCRIPTION: NO CHG FLUORO; HUMERUS LEFT IMAGES COMPLETED DATE/TIME: 09/01/2020 5:57 pm REASON FOR STUDY: ORIF L HUMERUS S42.322K DISPL TRANSVERSE FX SHAFT OF HUMER, L ARM, 7THK COMPARISON: None. FLUOROSCOPY TIME: 0.3 minute None images saved to PACS. TECHNIQUE: Intra-operative images acquired during surgical procedure to evaluate progress. NUMBER OF IMAGES: 9 LIMITATIONS: None FINDINGS: Internal fixation site of displaced fracture at the level of the stem of the prosthesis. IMPRESSION: IMAGE(S) OBTAINED DURING PROCEDURE. COMMENT: Quality ID 145: Final reports for procedures using fluoroscopy that document radiation exp osure indices, or exposure time and number of fluorographic images (if radiation exposure indices are not available) Please consult full operative report of the attending physician for description of the procedure. TECHNICAL DOCUMENTATION: JOB ID: [id number] 2010 [employer]- All Rights Reserved Reading location - IP/workstation name: [email or web address]
== END 2020-09-02 10:00 | disposition home or self-care (01) ==
LOC: OROUT 09:29 → 4W 20:45 → OROUT 09-02 10:00
PROVIDERS: ATTEND Orthopaedic Surgery
DX: S42.322K Displaced transverse fracture of shaft of humerus, left arm, subsequent encounter for fracture with nonunion (principal); M96.622 Fracture of humerus following insertion of orthopedic implant, joint prosthesis, or bone plate, left arm; M97.32XA Periprosthetic fracture around internal prosthetic left shoulder joint, initial encounter; Y83.8 Other surgical procedures as the cause of abnormal reaction of the patient, or of later complication, without mention of misadventure at the time of the procedure; Z01.812 Encounter for preprocedural laboratory examination; Z20.822 Contact with and (suspected) exposure to COVID-19; Z01.810 Encounter for preprocedural cardiovascular examination; M06.9 Rheumatoid arthritis, unspecified; M81.0 Age-related osteoporosis without current pathological fracture; I10 Essential (primary) hypertension; M10.00 Idiopathic gout, unspecified site; K21.9 Gastro-esophageal reflux disease without esophagitis; Z79.899 Other long term (current) drug therapy; M06.4 Inflammatory polyarthropathy; M15.9 Polyosteoarthritis, unspecified; E03.9 Hypothyroidism, unspecified; Z96.653 Presence of artificial knee joint, bilateral; Z79.02 Long term (current) use of antithrombotics/antiplatelets; Z79.890 Hormone replacement therapy; Z98.890 Other specified postprocedural states
CPT/HCPCS: 24435; 86900; 86901; 36415; 87070; 87205; 86850; 84132; 85025; 87075; 73060; 93005; 93010; 01744; 64415; 76942; U0003; J2795 ×2; J2250; J3490 ×4; J1100; J0171; J3010; A9270; J2370; J2405; J7120; J2704; J3370; C9803; 87635